=== PATIENT | female | born 1960 | race Caucasian/White ===

== ENCOUNTER 2019-10-06 11:37 | Inpatient (IN) ==
[2019-10-06] MEDS ORDERED: NS 1,000 ML IV ONE ×2 (11:43→14:49)
[2019-10-06] MEDS ORDERED: ATIVAN IM ONE (11:45)
[2019-10-06] MEDS ORDERED: BENADRYL IM ONE (11:45)
[2019-10-06] MEDS ORDERED: STERILE WATER INJ. INJ ONE (11:45)
[2019-10-06] MEDS ORDERED: GEODON IM ONE (11:45)
--- NOTE | 2019-10-06 12:33 | Diag Imaging Result Doc PS360 ---
EXAM: CT HEAD W/O CONTRAST INDICATION: AMS, history of cancer TECHNIQUE: This exam was performed using automated exposure control, adjustment of mA or kV according to patient size, and/or use of iterative reconstruction technique. COMPARISON: 05/22/2019 FINDINGS: There is no definite acute infarct given the limited sensitivity of CT versus MRI. There is no discrete intracranial mass, mass effect, or intracranial hemorrhage. There is severe right maxillary sinus mucosal disease. Surrounding soft tissues and bony structures are grossly unremarkable, otherwise. IMPRESSION: Right maxillary sinusitis. No evidence of acute intracranial pathology by CT. Electronically signed by Eliot Kimble 10/06/2019 12:31 PM
--- NOTE | 2019-10-06 12:59 | Diag Imaging Result Doc PS360 ---
EXAM: CHEST-PORTABLE HISTORY: AMS TECHNIQUE: Single view COMPARISON: 05/22/2019 FINDINGS: The lungs are well expanded. No cardiomegaly. No pulmonary edema. There are surgical clips and sutures in the left hemithorax. No change in the right jugular portacatheter. No consolidation. No pleural effusions identified. IMPRESSION: Stable chest Electronically signed by Nael Ryan 10/06/2019 12:56 PM
[2019-10-06] MEDS ORDERED: D50W SYRINGE IV ONE ×3 (13:24→23:43)
--- NOTE | 2019-10-06 13:26 | EKG Report ---
Test Performed on : 10/06/2019 1:27:17 PM Test Reason : Stroke like symptoms Blood Pressure : / mmHG Vent. Rate : 100 BPM Atrial Rate : 100 BPM P-R Int : 000 ms QRS Dur : 092 ms QT Int : 542 ms P-R-T Axes : 000 060 028 degrees QTc Int : 699 ms Accelerated Junctional rhythm. Nonspecific ST and T wave abnormality Prolonged QT Abnormal ECG When compared with ECG of 22-MAY-2019 10:21, Junctional rhythm. has replaced Sinus rhythm. Vent. rate has increased BY 33 BPM Inverted T waves have replaced nonspecific T wave abnormality in Inferior leads QT has lengthened Unconfirmed Result
[2019-10-06 14:01] LABS: BASO# 0.03 X1000 (0.0-0.2); BASO% 0.6 % (0.0-0.8); EOS# 1.22 X1000 (0.0-0.7); EOS% 23.9 % (0.0-10.0); HEMATOCRIT 33.2 % (37.0-47.0); HEMOGLOBIN 11.1 g/dL (12.0-16.0); LYMPH# 0.79 X1000 (1.2-3.4); LYMPH% 15.5 % (20.5-51.1); MCH 30.8 PG (27-31); MCHC 33.4 g/dL (33-37); MCV 92.2 FL (81-99); MONO# 0.43 X1000 (0.11-0.59); MONO% 8.4 % (1.7-9.3); MPV 9.7 FL (7.4-10.4); NEUT# 2.63 X1000 (1.4-6.5); NEUT% 51.6 % (42.2-75.2); PLT 179 X1000 (130-400); RDW 14.2 % (11.5-14.5)
[2019-10-06 14:04] LABS: ESTIMATED GFR > 60
[2019-10-06 14:08] LABS: AGAP 12; ALB/GLOB RATIO 2.4; ALBUMIN 3.1 g/dL (3.5-5.0); ALKALINE PHOSPHATASE 49 U/L (32-104); BUN 6 mg/dL (8-22); CALCIUM 8.1 mg/dL (8.8-10.2); CHLORIDE 85 mmol/L (98-107); COSMO 259; CREATININE 0.4 mg/dL (0.5-0.9); GLUCOSE 318 mg/dL (70-104); GOT 17 U/L (10-30); GPT 7 U/L (10-36); SODIUM 124 mmol/L (136-145); TCO2 27 mmol/L (25-35); TOTAL BILIRUBIN 0.58 mg/dL (0.20-1.00); TOTAL PROTEIN 4.4 g/dL (6.3-8.3)
[2019-10-06 14:15] LABS: INR 1.13; PROTIME 14.6 Seconds (11.0-16.0)
[2019-10-06 14:16] LABS: PTT 45.9 Seconds (22.3-41.8)
[2019-10-06 14:42] LABS: EOS 19 % (1-10); LYMPHS 17 % (21-51); MONO 5 % (1-9); SEGS 59 % (42-75)
[2019-10-06 14:49] LABS: URINE SOURCE CATH
[2019-10-06] MEDS ORDERED: HUMULIN R IV ONE (14:49)
[2019-10-06] MEDS ORDERED: ROCEPHIN 1 GM in NS 50 ML IV ONE (14:57)
[2019-10-06 15:03] LABS: BILIRUBIN URINE NEGATIVE (NEGATIVE); BLOOD URINE NEGATIVE (NEGATIVE); COLOR YELLOW; GLUCOSE URINE 150 mg/dL (NEGATIVE); KETONE URINE 10 mg/dL (NEGATIVE); LEUKOCYTES URINE NEGATIVE (NEGATIVE); NITRITE URINE NEGATIVE (NEGATIVE); PROTEIN URINE TRACE mg/dL (NEGATIVE); SP GRAVITY URINE 1.011; TURBIDITY URINE CLEAR (CLEAR); UROBILINOGEN URINE NORMAL (NORMAL)
[2019-10-06 15:06] LABS: UR EPITHELIAL CELLS <10 /HPF (<10); URINE BACTERIA NEGATIVE /HPF; URINE RBC <10 /HPF (<10); URINE WBC <10 /HPF (<10)
--- NOTE | 2019-10-06 15:08 | PROVIDER DOCUMENTATION ---
This chart was entered by Nicole Acuna Scribe, acting as scribe for Syed Mcdaniel MD. HPI-General Adult - General Stated Complaint: MENTAL CONFUSION "STATES SHE JSUT DONT FEEL WELL" Time Seen by Provider: 10/06/19 11:41 Source: patient, family () Unable to obtain history due to:: altered Allergies/Adverse Reactions: Patient Allergies Allergy/AdvReac Type Severity Reaction Status Date / Time Penicillins Allergy HIVES Verified 05/22/19 10:18 Home Medications: Home Medication List Medication Instructions Recorded Confirmed Last Taken Type Diphenhydramine HCl [Sleep Aid] 25 mg PO HS 10/13/17 05/22/19 11/20/17 21:00 History Triamterene/Hydrochlorothiazid 1 each PO DAILY 10/13/17 05/22/19 11/20/17 21:00 History [Dyazide 37.5-25 Capsule] Ondansetron [Zofran] 4 mg PO Q6H PRN PRN #10 tab 11/21/17 05/22/19 Unknown Rx Potassium Chloride 20 meq PO DAILY 11/21/17 05/22/19 11/21/17 08:00 History Albuterol Sulfate Inhaler 2 puff INH PRN PRN 05/22/19 05/22/19 Unknown History [Ventolin Hfa] Levothyroxine [Synthroid] 100 mg PO DAILY 05/22/19 05/22/19 Unknown History Magnesium Chloride 400 mg PO DAILY 05/22/19 05/22/19 Unknown History Methylphenidate HCl [Ritalin] 10 mg PO BID 05/22/19 05/22/19 Unknown History Aspirin 81 mg PO DAILY #30 chewtab 05/24/19 Unknown Rx Cephalexin [Keflex] 500 mg PO Q12H #10 cap 05/24/19 Unknown Rx Lactobacillus Rhamnosus GG 1 ea PO DAILY #30 cap 05/24/19 Unknown Rx [Culturelle] - History of Present Illness -Gen Adult Nature of Presenting Problems: 59 yowf presents to the ed via ems from [facility]. per pt was at baseline last night and this morning when shee woke she was confused and combative. pt sts she has recently completed her chemo for lung cancer but there is a concern of mets to the brain. so when found his altered he drove her to [facility]. pton exam is paranoid and has exaggerated movements. pt keeps yelling for dr villalta and telling her "just stop all this" pt is noted to have 2 diffrent shoes on her feet and does not comply with questions asked or exam completely. Location of Pain/Injury: reports: none Pain Radiation: reports: no radiation Quality of Pain: reports: none Severity: reports: severe (ams) Onset/Duration: reports: this morning Timing: reports: still present, constant Context/Activities at Onset: reports: light activity Modifying Factors: improves with: nothing Associated Symptoms: reports: anxiety, other (ams). denies: fever/chills, shortness of breath, weakness, trouble walking Similar Symptoms Previously?: No Recently seen or treated by another doctor?: Yes (saw oncology 2 weeks prior and this am) Review of Systems - Adult - REVIEW OF SYSTEMS - ADULT ROS:: ROS per family () Constitutional: denies: chills, fever Eyes: reports: no symptoms reported Ears, Nose, Mouth & Throat: reports: no symptoms reported Cardiovascular: denies: chest pain, syncope Respiratory: denies: cough, shortness of breath Gastrointestinal: denies: nausea, vomiting Genitourinary: reports: no symptoms reported Musculoskeletal: reports: no symptoms reported Integumentary: reports: no symptoms reported Neurological: denies: dizziness/vertigo, slurred speech Psychiatric: reports: no symptoms reported Endocrine: reports: no symptoms reported Hematologic/Lymphatic: reports: no symptoms reported Allergic/Immunologic: reports: no symptoms reported All Other Systems: Reviewed and Negative Past History - Adult - PAST MEDICAL HISTORY-ADULT Review of Records: reports: Old Records Reviewed, Nursing Assessment Review, Medications Reviewed, Social history reviewed & non-contributory. Major Childhood Illnesses: reports: denies history Cardiovascular: reports: HTN Respiratory: reports: COPD, cancer Gastrointestinal: reports: denies history Obstetrical/Gynecological: reports: denies history Genitourinary: reports: kidney disease Musculoskeletal: reports: denies history Hand Dominance: Right Handed Neurological: reports: CVA Psychiatric: reports: denies history Endocrine/Immune: reports: denies history Other Conditions: reports: denies history - PRIOR SURGERIES/PROCEDURES Surgical/Procedure History: reports: - IMMUNIZATION STATUS Childhood Immunizations: See Nurse Assessment Flu Vaccine: See Nurse Assessment - FAMILY HISTORY Family History: reviewed, not pertinent - SOCIAL HISTORY Smoking: denies Substance Use: alcohol Alcohol Use Frequency: occasionally Number of drinks per typical drinking period:: 2 drinks Living Situation: family Physical Exam-General - PHYSICAL EXAM-ADULT Exam Limited by: pt is combative and does not comply with compete exam Initial Vital Signs Reviewed: Yes - CONSTITUTIONAL General Appearance: alert, mild distress, thin, anxious - EYES Eyes: PERRL/EOMI (mid range and reactive) - HEAD, EARS, NOSE, MOUTH & THROAT HENMT: moist mucous membranes - NECK Neck: non-tender, full range of motion, normal inspection - CARDIOVASCULAR Cardiovascular: normal peripheral pulses, tachycardia - CHEST (BREASTS) Chest/Breast: deferred - GENITOURINARY Female Genitalia/Pelvic Exam: deferred Rectal Exam: deferred Hemoccult Exam: deferred - MUSCULOSKELETAL Extremity: normal range of motion, normal gait - SKIN Integumentary: normal color, normal turgor, warm/dry - PSYCHIATRIC Psych/Mental Status: disoriented x 3, anxious, paranoid Progress - PLAN OF CARE/RESULTS Progress/Plan/Lab Results: Orders Category Date Time Status Cardiac Monitoring DIRECTED Care 10/06/19 11:41 Active Finger Stick Blood Sugar (ED) DIRECTED Care 10/06/19 11:41 Active Saline Loc NOW Care 10/06/19 11:41 Active CHEST-PORTABLE [RAD] Stat Exams 10/06/19 11:[address] HEAD W/O CONTRAST [CT] Stat Exams 10/06/19 11:41 Ordered BLOOD CULTURE [BLDCUL] Stat Lab 10/06/19 11:42 Uncollected CBC WITH ELECTRONIC DIFF [HEME] Stat Lab 10/06/19 11:41 Uncollected COMPREHENSIVE METABOLIC PANEL [CHEM] Stat Lab 10/06/19 11:41 Uncollected LACTATE, PLASMA [CHEM] Stat Lab 10/06/19 11:43 Uncollected PROTIME WITH INR [COAG] Stat Lab 10/06/19 11:41 Uncollected PTT [COAG] Stat Lab 10/06/19 11:41 Uncollected TROPONIN T Stat Lab 10/06/19 11:41 Uncollected URINALYSIS W/POSS RFLX CULT [URINALYSIS] Stat Lab 10/06/19 11:41 Uncollected URINE DRUG SCREEN Stat Lab 10/06/19 11:41 Uncollected 0.9% Sodium Chloride Inj [Ns] 1,000 ml Med 10/06/19 11:43 Active IV 999 mls/hr Diphenhydramine [Benadryl] Med 10/06/19 11:45 Discontinued 50 mg IM NOW ONE Lorazepam [Ativan] Med 10/06/19 11:45 Discontinued 1 mg IM NOW ONE Water, Sterile Inj [Sterile Water Inj.] Med 10/06/19 11:45 Discontinued 1.2 ml INJ NOW ONE Ziprasidone [Geodon] Med 10/06/19 11:45 Discontinued 20 mg IM NOW ONE EKG [EKG] Stat Ther 10/06/19 11:41 Ordered Result Diagrams: 10/06/19 13:25 10/06/19 13:25 - REASSESSMENT Reassessment #1 Time Reassessed: 13:19 (pt has [facility] 41 dr mcdaniel at bedside) Reassessment #2 Time Reassessed: 14:57 (pt is resting in bed and daughter at bedside sts with BGL drops mother can act odd like she presented today) Status: improving - EKG 1 Time of EKG reading by physician:: 13:27 EKG Read and Signed by:: Syed Mcdaniel EKG Interpretation (*Must complete 3 of following elements*): Abnormal Rate: 100 Rhythm: sinus tach Assaria: normal QRS: other (bilateral enlargment/prolonged QT) AL Interval: normal Comments: nonspecific ST and T wave abnormlaity - XRAY 1 XRAY: Bilateral XRAY Study: Chest Impression: See EMR Report (EXAM: CHEST-PORTABLE HISTORY: AMS TECHNIQUE: Single view COMPARISON: 05/22/2019 FINDINGS: The lungs are well expanded. No cardiomegaly. No pulmonary edema. There are surgical clips and sutures in the left hemithorax. No change in the right jugular portacatheter. No consolidation. No pleural effusions identified. IMPRESSION: Stable chest Electronically signed by Nael Ryan 10/06/2019 12:56 PM 10/06/19 1256 Interpreting Physician: Nael Ryan MD Dictated Date/Time: 10/06/19 1255 cc: Syed Mcdaniel MD; Jose Villalta MD) - CT/MRI 1 CT Study: Head Impression: See EMR Report (EXAM: CT HEAD W/O CONTRAST INDICATION: AMS, history of cancer TECHNIQUE: This exam was performed using automated exposure control, adjustment of mA or kV according to patient size, and/or use of iterative reconstruction technique. COMPARISON: 05/22/2019 FINDINGS: There is no definite acute infarct given the limited sensitivity of CT versus MRI. There is no discrete intracranial mass, mass effect, or intracranial hemorrhage. There is severe right maxillary sinus mucosal disease. Surrounding soft tissues and bony structures are grossly unremarkable, otherwise. IMPRESSION: Right maxillary sinusitis. No evidence of acute intracranial pathology by CT. Electronically signed by Eliot Kimble 10/06/2019 12:31 PM 10/06/19 1231 Interpreting Physician: Eliot Kimble MD Dictated Date/Time: 10/06/19 1230 cc: Syed Mcdaniel MD; Jose Villalta MD) - CONSULTS/PCP/HOSPITALIST Notification #1 *Consult/PCP/Hospitalist*: dr villalta oncology Time Discussed: 14:55 (admit to hospitalist service) Reason/Comments: phone consult #2 Consult: hospitalist Time Discussed: 15:03 (spoke with nghia) Reason/Comments: admit to [facility] Consult Disposition: Will see in ED, Admit Departure - Departure Date of Disposition Decision: 10/06/19 Time of Disposition Decision: 15:05 DIAGNOSIS: Multiple episodes of hypoglycemia, Opioid dependence in controlled environment, Prolonged QT interval syndrome, Hyponatremia syndrome Altered mental status, unspecified Qualifiers: Altered mental status type: disorientation Qualified Code(s): R41.0 - Disorientation, unspecified Maxillary sinusitis, acute Qualifiers: Recurrence: non-recurrent Qualified Code(s): J01.00 - Acute maxillary sinusitis, unspecified Disposition: ADMITTED INPATIENT 09 Certified Medical Emergency: Emergent Condition: Fair Referrals and Follow-Ups: Jose Villalta MD [Primary Care Provider] - - Critical Care Note This patient required my direct & personal management of CC.: Yes Total Time (mins): 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 Attestation - Physician/ YARITZA Attestation Patient care was provided by Advanced Practice Provider:: No The physician spent face to face time with patient:: Yes Advanced Practice Provider documentation review:: Supervising physician onsite and consulted in the evaluation and care of this patient. The physician did have a face to face encounter with the patient. This chart was documented by the indicated scribe, (Nicole Acuna Scribe) and accurately reflects the services I performed and decisions made by me, Syed Mcdaniel MD, as attested by the provider's signature.
[2019-10-06 15:18] LABS: UR AMPHETAMINES QUAL NONE DETECTED (NONE DETECT); UR BARBITUATES QUAL NONE DETECTED (NONE DETECT); UR BENZODIAZEPIN QUAL NONE DETECTED (NONE DETECT); UR CANNABINOIDS QUAL NONE DETECTED (NONE DETECT); UR COCAINE QUAL NONE DETECTED (NONE DETECT); UR METHADONE QUAL NONE DETECTED (NONE DETECT); UR OPIATES QUAL PRESUMPTIVE POSITIVE (NONE DETECT); UR OXYCODONE QUAL NONE DETECTED (NONE DETECT); UR PCP QUAL NONE DETECTED (NONE DETECT)
[2019-10-06] MEDS ORDERED: MAGNESIUM SULFATE 2 GM/S.W.I. 2 GM/50 ML IVPB IV ONE (15:58)
[2019-10-06] MEDS ORDERED: POTASSIUM CHLORIDE 20 MEQ/SWI 20 MEQ/100 ML IVPB IV ONE (15:58)
[2019-10-06] MEDS ORDERED: NS + KCL 40 MEQ 1,000 ML IV ONE (16:00)
[2019-10-06] MEDS ORDERED: TYLENOL PO PRN (16:10)
--- NOTE | 2019-10-06 16:27 | HISTORY AND PHYSICAL ---
HISTORY OF PRESENT ILLNESS: This is a 59-year-old who is followed by Dr. Jose Ayoub. A 59- year-old who has a history of lung cancer that metastasized to the kidney, lymph node, left upper lobectomy 10 years ago, had a tumor removed off her kidney about 2 years ago. The patient has noted to have right lung nodules, receiving chemotherapy per Dr. Ayoub, chemotherapy with Taxol and Avastin. Treatment with Avastin, I think it is still going on. She has a history of hypertension, hyperlipidemia, hypothyroidism, chronic pain. Stated that yesterday she was in fairly good state of health. Today, she was very confused, disoriented and somewhat agitated. They state she has lost probably 50 pounds in the last 2 years. She has had poor appetite and had some nausea. She did have a low sodium. They do not report any fever chills or cough or hematochezia or gross hematuria. PAST SURGICAL HISTORY: Had a lobectomy 10 years ago and left upper lobe tumor removal from her right kidney about 2 years ago. He has had been following nodules on the right lung, followed by Dr. Ayoub. FAMILY HISTORY: Father of lung cancer. SOCIAL HISTORY: She was a former smoker. She has quit a good 13 years ago after she was diagnosed with lung cancer. Denies any illicit drug use. No alcohol. Not eating very well at all. ALLERGIES: Penicillin. HER MEDICATIONS: Reviewed. REVIEW OF SYSTEMS: She denies fever or chills. Feels like she is steadily losing more weight, increased weakness, general weakness and lethargy.HEENT: No change in visual or hearing acuity reported. Respiratory: No increased work of breathing or dyspnea. No pleuritic pain or cough. Cardiovascular: No chest pain or tachy palpitation. Gastrointestinal and Genitourinary: No gross hematuria, dysuria, poor appetite. Endocrinologic, hematologic: No significant history. Musculoskeletal/Neurologic: Just general weakness, nothing focal. PHYSICAL EXAMINATION: VITAL SIGNS: In the emergency room temp 97.5 degrees, pulse 85, respirations 12, blood pressure 129/85. HEENT: Pupils are equal and round. LUNGS: Clear in all lung rose. CARDIOVASCULAR: Regular rhythm and rate without murmur or S3. ABDOMEN: Soft. SKIN: Warm and dry. Weight was 99 pounds. NECK: Supple without adenopathy or thyromegaly. LABORATORY DATA: White count 5100, hematocrit is 33, hemoglobin 11, platelet count 179,000. Sodium 124, potassium 3.0, chloride is 85, BUN is 6, creatinine 0.4, blood sugar is 41, calcium is 8.1, AST is 17, ALT was 77. Troponin is less than 0.01. Albumin 3.1. ProTime is 14.6, PTT was 45. Note, the albumin was 3.1. Urine drug screen presumptive positive for opiates. Urinalysis unremarkable. IMAGING: Chest x-ray: Stable chest. Lungs well expanded. No cardiomegaly. No pulmonary edema. There are some surgical clips and sutures in the left hemithorax. No change in the right jugular [id number]. No consolidation or pleural effusions appreciated. CT of the head without contrast: Right maxillary sinusitis. No evidence of acute intracranial pathology per CT scan. ASSESSMENT AND PLAN: Altered mental status on the face of severe protein-calorie malnutrition with cachexia. She has a normocytic anemia which appears stable. She has significant hyponatremia sodium 124. I do not see any significant acidosis. Transaminases are unremarkable, but she has been running low glucose at home. Review of her medications: She is on magnesium supplement. She is taking Ritalin 10 mg p.o. b.i.d.. She is on a diuretic of triamterene and hydrochlorothiazide, and she is getting Synthroid. So, we will continue her Synthroid 100 mg p.o. daily, aspirin 81 mg a day. She was taking Keflex. We will hold that for now. She is on Culturelle 1 a day. We will continue that. We will check her B12 and folate T4 TSH we will check an a.m. cortisol level. I think we probably should check hemoglobin A1c and we will give her a regular diet and see how her p.o. intake is. We will give her some normal saline and will run it at 85 mL an hour. I think we will give her normal saline with some potassium so we will have 40 mEq of potassium in it per L, run it at 85 mL an hour. Ask Dr. Ayoub to help as far as making decisions on her treatment and home discharge plans. cc: Gerry [facility] MD
[2019-10-07] MEDS ORDERED: NS + KCL 40 MEQ 1,000 ML IV SCH (05:00)
[2019-10-07 06:14] LABS: BASO# 0.02 X1000 (0.0-0.2); BASO% 0.4 % (0.0-0.8); EOS# 0.83 X1000 (0.0-0.7); HEMATOCRIT 40.2 % (37.0-47.0); HEMOGLOBIN 13.8 g/dL (12.0-16.0); LYMPH# 0.81 X1000 (1.2-3.4); LYMPH% 17.6 % (20.5-51.1); MCH 31.1 PG (27-31); MCHC 34.3 g/dL (33-37); MCV 90.5 FL (81-99); MONO# 0.46 X1000 (0.11-0.59); NEUT# 2.49 X1000 (1.4-6.5); PLT 190 X1000 (130-400); RBC 4.44 XMIL (4.2-5.4); RDW 14.4 % (11.5-14.5); WBC 4.61 X1000 (4.8-10.8)
[2019-10-07 06:22] LABS: HEMOGLOBIN A1C 4.5 % (4.8-6.0)
[2019-10-07 06:28] LABS: AGAP 14; ALB/GLOB RATIO 1.9; ALBUMIN 3.4 g/dL (3.5-5.0); ALKALINE PHOSPHATASE 64 U/L (32-104); BUN 4 mg/dL (8-22); CALCIUM 8.3 mg/dL (8.8-10.2); CHLORIDE 87 mmol/L (98-107); COSMO 250; CREATININE 0.4 mg/dL (0.5-0.9); ESTIMATED GFR > 60; GLUCOSE 69 mg/dL (70-104); GOT 25 U/L (10-30); GPT 9 U/L (10-36); MAGNESIUM 1.7 mg/dL (1.5-2.7); POTASSIUM 3.3 mmol/L (3.5-5.1); SODIUM 127 mmol/L (136-145); TCO2 26 mmol/L (25-35); TOTAL BILIRUBIN 0.42 mg/dL (0.20-1.00); TOTAL PROTEIN 5.2 g/dL (6.3-8.3)
[2019-10-07 06:43] LABS: PREALBUMIN 6.4 mg/dL (20-40)
[2019-10-07] MEDS: D50W SYRINGE IV ONE ×4 (06:45→07:12)
[2019-10-07 07:07] LABS: FREE T4 1.15 ng/dL (0.93-1.70); TSH 5.92 uIUmL (0.27-4.20)
--- NOTE | 2019-10-07 07:45 | EKG Report ---
Test Performed on : 10/07/2019 07:13:51 AM Test Reason : evaluate qtc Blood Pressure : / mmHG Vent. Rate : 115 BPM Atrial Rate : 059 BPM P-R Int : 000 ms QRS Dur : 084 ms QT Int : 460 ms P-R-T Axes : 000 084 113 degrees QTc Int : 636 ms Critical Test Result: Long QTc Accelerated Junctional rhythm. Septal infarct , age undetermined Possible Inferior infarct , age undetermined T wave abnormality, consider anterior ischemia Prolonged QT Abnormal ECG When compared with ECG of 06-OCT-2019 13:27, (Unconfirmed) Borderline criteria for Inferior infarct are now present Confirmed by Reny OSCAR, Liban ([id number]) on 10/07/2019 8:39:53 AM
[2019-10-07] MEDS: ZOFRAN IV PRN (09:51)
[2019-10-07] MEDS: MS CONTIN PO SCH ×2 (09:51→21:23)
[2019-10-07] MEDS: D5 NS 1,000 ML IV SCH ×2 (09:52→21:29)
[2019-10-07] MEDS ORDERED: VANCOMYCIN IV PER PHARMACY MISC SCH (10:45)
[2019-10-07] MEDS ORDERED: SYNTHROID PO SCH (11:45)
[2019-10-07] MEDS ORDERED: VANCOMYCIN 1,500 MG in NS 250 ML IV ONE (12:00)
[2019-10-07] MEDS: MAG-OX PO SCH (12:51)
[2019-10-07] MEDS: CULTURELLE PO SCH (12:51)
[2019-10-07] MEDS: KLOR-CON PO SCH (12:51)
[2019-10-07] MEDS: NORCO-10 PO PRN (12:51)
[2019-10-07] MEDS: ASPIRIN PO SCH (12:51)
[2019-10-07] MEDS: DYAZIDE PO SCH (12:51)
--- NOTE | 2019-10-07 12:52 | Diag Imaging Result Doc PS360 ---
MRI BRAIN W/WO CONTRAST - 10/07/2019 INDICATION: New onset AMS in pt with NSCLC COMPARISON: 05/24/2019, 10/06/2019 FINDINGS: The ventricles and sulci are normal in size and contour. No intracranial mass or hemorrhage. No abnormal contrast enhancement. There are a couple of tiny stable nonspecific white matter hyperintensities. There are some stable mucosal retention cysts of the right maxillary sinus. IMPRESSION: No acute disease or change from prior. Electronically signed by Nolan Vasquez 10/07/2019 12:50 PM
--- NOTE | 2019-10-07 13:15 | PROGRESS NOTE ---
DATE: 10/07/2019 SUBJECTIVE: Ms. Hernandez does feel much better. No confusion this morning. Blood sugar has come up above 100. OBJECTIVE: Temperature is 97.6 degrees, pulse 110, respirations 17, blood pressure 148/92. Lungs: Clear in all lung rose. Cardiovascular: Regular rhythm and rate without murmur or S3. Abdomen: Soft. Skin: Warm and dry. Urine output is 3200 mL. ASSESSMENT AND PLAN: Altered mental status in the face hypoglycemia and hyponatremia. Poor food and liquid intake, so encourage her. She does not have much appetite. Encouraged her to eat. Her sodium came up from 124 to 127. Blood sugars have come up above 100 and so we will see how she does with eating and see what Dr. Ayoub is planning. I know they had talked about pursuing an EGD and maybe that will be something we will pursue as an outpatient. Plan to keep her today and possibly go home tomorrow. We will get some physical therapy and see if we can get her up and walk around some. cc: Gerry [facility] MD
[2019-10-07] MEDS: ROCEPHIN 1 GM in NS 50 ML IV SCH (17:23)
[2019-10-07] MEDS ORDERED: RITALIN PO SCH (21:00)
[2019-10-07] MEDS: BENADRYL PO SCH (21:23)
[2019-10-08] MEDS: VANCOMYCIN 1,300 MG in NS 250 ML IV SCH (05:28)
[2019-10-08 06:35] LABS: AGAP 10; ALB/GLOB RATIO 1.6; ALBUMIN 2.9 g/dL (3.5-5.0); ALKALINE PHOSPHATASE 53 U/L (32-104); BUN 6 mg/dL (8-22); CALCIUM 7.9 mg/dL (8.8-10.2); CHLORIDE 94 mmol/L (98-107); COSMO 257; CREATININE 0.6 mg/dL (0.5-0.9); ESTIMATED GFR > 60; GLUCOSE 101 mg/dL (70-104); GOT 20 U/L (10-30); GPT 8 U/L (10-36); POTASSIUM 3.7 mmol/L (3.5-5.1); SODIUM 129 mmol/L (136-145); TCO2 25 mmol/L (25-35); TOTAL BILIRUBIN 0.38 mg/dL (0.20-1.00); TOTAL PROTEIN 4.7 g/dL (6.3-8.3)
[2019-10-08 06:46] LABS: BASO# 0.03 X1000 (0.0-0.2); BASO% 0.6 % (0.0-0.8); EOS# 1.19 X1000 (0.0-0.7); EOS% 22.5 % (0.0-10.0); HEMATOCRIT 38.1 % (37.0-47.0); HEMOGLOBIN 12.6 g/dL (12.0-16.0); LYMPH# 0.87 X1000 (1.2-3.4); LYMPH% 16.4 % (20.5-51.1); MCH 30.7 PG (27-31); MCHC 33.1 g/dL (33-37); MCV 92.9 FL (81-99); MONO# 0.65 X1000 (0.11-0.59); MONO% 12.3 % (1.7-9.3); MPV 10.3 FL (7.4-10.4); NEUT# 2.56 X1000 (1.4-6.5); NEUT% 48.2 % (42.2-75.2); PLT 208 X1000 (130-400); RDW 14.9 % (11.5-14.5)
[2019-10-08 07:27] LABS: EOS 18 % (1-10); LYMPHS 20 % (21-51); MONO 2 % (1-9); SEGS 60 % (42-75)
[2019-10-08] MEDS: MS CONTIN PO SCH ×2 (09:35→21:45)
[2019-10-08] MEDS: KLOR-CON PO SCH (09:35)
[2019-10-08] MEDS: RITALIN PO SCH ×2 (09:36→12:47)
[2019-10-08] MEDS: MAG-OX PO SCH (09:36)
[2019-10-08] MEDS: SYNTHROID PO SCH (09:36)
[2019-10-08] MEDS: ASPIRIN PO SCH (09:36)
[2019-10-08] MEDS: DYAZIDE PO SCH (09:36)
[2019-10-08] MEDS: CULTURELLE PO SCH (09:36)
[2019-10-08] MEDS: D5 NS 1,000 ML IV SCH ×3 (10:57→21:45)
[2019-10-08] MEDS: NORCO-10 PO PRN ×2 (12:46→19:19)
[2019-10-08] MEDS: ZOFRAN IV PRN ×2 (13:41→18:06)
--- NOTE | 2019-10-08 15:33 | PROGRESS NOTE ---
DATE: 10/08/2019 She is sitting up in chair feeling much better. Plan is to try and get a PEG tube and EGD done on Friday. She remains afebrile, temperature 97.7 degrees, pulse 89, respirations 18, blood pressure 143/70. Pupils are equal and round. Lungs: Clear in all lung rose. Cardiovascular: Regular rhythm, rate without murmur or S3. Abdomen: Soft. Skin: Warm and dry. Urine output 1600 mL. ASSESSMENT AND PLAN: Presented with hypoglycemia, hyponatremia, poor p.o. intake, protein calorie malnutrition. Plan is to try and place PEG tube and do an EGD on Friday per Dr. Gongora. She had a brain MRI done and no acute disease. She has normocytic anemia. Hyponatremia is improved. She is followed by Dr. Jose Ayoub, history of lung cancer metastatic to the kidney, lymph nodes, left upper lobectomy was done 10 years ago tumor removed from the kidney about 2 years ago. Review of orders, I do not see any change. cc: Gerry [facility] MD
[2019-10-08] MEDS: ROCEPHIN 1 GM in NS 50 ML IV SCH (17:51)
[2019-10-08] MEDS: PROTONIX IV SCH (17:51)
[2019-10-08] MEDS: D50W SYRINGE IV PRN (20:18)
[2019-10-08] MEDS: COMPAZINE IV PRN (20:18)
[2019-10-08] MEDS: BENADRYL PO SCH (21:45)
[2019-10-09] MEDS: VANCOMYCIN 1,300 MG in NS 250 ML IV SCH ×2 (00:46→17:43)
[2019-10-09] MEDS: ZOFRAN IV PRN ×3 (01:20→20:19)
[2019-10-09] MEDS: D50W SYRINGE IV PRN ×4 (02:14→21:12)
[2019-10-09 06:38] LABS: BASO# 0.01 X1000 (0.0-0.2); BASO% 0.2 % (0.0-0.8); EOS# 1.37 X1000 (0.0-0.7); EOS% 26.5 % (0.0-10.0); HEMATOCRIT 38.2 % (37.0-47.0); HEMOGLOBIN 12.3 g/dL (12.0-16.0); LYMPH# 0.76 X1000 (1.2-3.4); LYMPH% 14.7 % (20.5-51.1); MCH 30.7 PG (27-31); MCHC 32.2 g/dL (33-37); MCV 95.3 FL (81-99); MONO# 0.39 X1000 (0.11-0.59); MONO% 7.5 % (1.7-9.3); MPV 9.5 FL (7.4-10.4); NEUT# 2.64 X1000 (1.4-6.5); NEUT% 51.1 % (42.2-75.2); PLT 210 X1000 (130-400); RBC 4.01 XMIL (4.2-5.4); RDW 14.9 % (11.5-14.5); WBC 5.17 X1000 (4.8-10.8)
[2019-10-09 06:58] LABS: AGAP 10; ALB/GLOB RATIO 1.4; ALBUMIN 2.7 g/dL (3.5-5.0); ALKALINE PHOSPHATASE 47 U/L (32-104); BUN 5 mg/dL (8-22); CHLORIDE 97 mmol/L (98-107); COSMO 265; CREATININE 0.7 mg/dL (0.5-0.9); ESTIMATED GFR > 60; GLUCOSE 98 mg/dL (70-104); GOT 17 U/L (10-30); GPT 6 U/L (10-36); MAGNESIUM 1.8 mg/dL (1.5-2.7); POTASSIUM 4.1 mmol/L (3.5-5.1); SODIUM 134 mmol/L (136-145); TCO2 27 mmol/L (25-35); TOTAL BILIRUBIN 0.29 mg/dL (0.20-1.00); TOTAL PROTEIN 4.6 g/dL (6.3-8.3)
[2019-10-09 07:54] LABS: ANISOCYTOSIS 1+; BANDS 1 % (0-1); EOS 11 % (1-10); LYMPHS 20 % (21-51); MONO 3 % (1-9); SEGS 65 % (42-75)
[2019-10-09] MEDS: RITALIN PO SCH ×2 (08:22→12:42)
[2019-10-09] MEDS: KLOR-CON PO SCH (08:22)
[2019-10-09] MEDS: MS CONTIN PO SCH ×2 (08:22→21:11)
[2019-10-09] MEDS: MAG-OX PO SCH (08:22)
[2019-10-09] MEDS: CULTURELLE PO SCH (08:23)
[2019-10-09] MEDS: ASPIRIN PO SCH (08:23)
[2019-10-09] MEDS: SYNTHROID PO SCH (08:23)
[2019-10-09] MEDS ORDERED: CEPACOL SORE THROAT LOZENGE MT PRN (09:52)
--- NOTE | 2019-10-09 10:36 | PROGRESS NOTE ---
DATE: 10/09/2019 SUBJECTIVE: She has been able to get down 1 biscuit. She was proud of that. Plan is to place a PEG tube on Friday. She is having some indigestion. She is already on Protonix 40 mg IV q.12. Let her have some Maalox if she wants to try that. OBJECTIVE: Vital signs: Remains afebrile. Pulse 96, respirations 17, blood pressure 151/74. HEENT: Pupils are equal and round. Lungs: Clear in all lung rose. Cardiovascular: Regular rate without murmur or S3. Abdomen: Soft. Skin: Warm and dry. Urine output is 3700 mL. ASSESSMENT AND PLAN: Presented with hypoglycemia, hyponatremia, severe protein calorie malnutrition. She has lung cancer metastatic to the kidney and lymph nodes. Left upper lobectomy was done 10 years ago and tumor removed from a kidney about 2 years ago. Main problem is poor nutrition and electrolytes, so plan is to try and get a PEG tube placed and an EGD done on Friday. LABORATORY DATA: Reviewed from this morning, white count is 5170, hematocrit is 38, platelet count is 210,000. Sodium 134, potassium 4.1, chloride 97, BUN is 5, creatinine 0.7. Blood sugars 62, 55, 79 and 57. REVIEW OF HER ORDERS: She is on aspirin 81 mg a day. Getting D5 normal saline at 85 mL an hour. Getting morphine ER 200 mg p.o. b.i.d. She gets Ritalin 10 mg twice a day, magnesium oxide 400 mg p.o. daily, Synthroid 100 mcg daily, lactobacillus rhamnosus 1 daily, ceftriaxone 1 g IV q.24 hours and vancomycin 1300 mg IV q.18 hours. MICROBIOLOGY: She has 1 out of 2 positive coagulase-negative Staphylococcus which is probably contaminant. cc: Gerry [facility] MD
[2019-10-09] MEDS: DYAZIDE PO SCH (11:29)
[2019-10-09] MEDS: CHLORASEPTIC SPRAY MT PRN (11:29)
[2019-10-09] MEDS: D5 NS 1,000 ML IV SCH ×2 (12:42→20:21)
[2019-10-09] MEDS: PROTONIX IV SCH (17:04)
[2019-10-09] MEDS: ROCEPHIN 1 GM in NS 50 ML IV SCH (17:05)
[2019-10-09] MEDS: COMPAZINE IV PRN (17:57)
[2019-10-09] MEDS: NORCO-10 PO PRN (20:19)
[2019-10-09] MEDS: BENADRYL PO SCH (21:11)
[2019-10-10] MEDS: COMPAZINE IV PRN ×2 (01:11→12:29)
[2019-10-10] MEDS: D5 NS 1,000 ML IV SCH ×2 (03:16→13:36)
[2019-10-10 06:11] LABS: BASO# 0.01 X1000 (0.0-0.2); BASO% 0.2 % (0.0-0.8); EOS# 1.84 X1000 (0.0-0.7); EOS% 33.2 % (0.0-10.0); HEMATOCRIT 35.3 % (37.0-47.0); HEMOGLOBIN 11.7 g/dL (12.0-16.0); LYMPH# 0.97 X1000 (1.2-3.4); LYMPH% 17.5 % (20.5-51.1); MCH 30.7 PG (27-31); MCHC 33.1 g/dL (33-37); MCV 92.7 FL (81-99); MONO# 0.43 X1000 (0.11-0.59); MONO% 7.8 % (1.7-9.3); MPV 9.7 FL (7.4-10.4); NEUT# 2.29 X1000 (1.4-6.5); NEUT% 41.3 % (42.2-75.2); PLT 213 X1000 (130-400); RBC 3.81 XMIL (4.2-5.4); RDW 14.2 % (11.5-14.5); WBC 5.54 X1000 (4.8-10.8)
[2019-10-10 06:31] LABS: AGAP 11; ALB/GLOB RATIO 1.3; ALBUMIN 2.5 g/dL (3.5-5.0); ALKALINE PHOSPHATASE 55 U/L (32-104); BUN 4 mg/dL (8-22); CALCIUM 8.2 mg/dL (8.8-10.2); CHLORIDE 95 mmol/L (98-107); COSMO 260; CREATININE 0.6 mg/dL (0.5-0.9); ESTIMATED GFR > 60; GLUCOSE 108 mg/dL (70-104); GOT 16 U/L (10-30); GPT 6 U/L (10-36); MAGNESIUM 1.5 mg/dL (1.5-2.7); POTASSIUM 3.4 mmol/L (3.5-5.1); SODIUM 131 mmol/L (136-145); TCO2 25 mmol/L (25-35); TOTAL BILIRUBIN 0.24 mg/dL (0.20-1.00); TOTAL PROTEIN 4.4 g/dL (6.3-8.3)
[2019-10-10] MEDS: ZOFRAN IV PRN (08:29)
[2019-10-10] MEDS: MS CONTIN PO SCH ×2 (08:31→19:59)
[2019-10-10] MEDS: MAG-OX PO SCH (08:32)
[2019-10-10] MEDS: SYNTHROID PO SCH (08:32)
[2019-10-10] MEDS: RITALIN PO SCH ×2 (08:32→12:23)
[2019-10-10] MEDS: ASPIRIN PO SCH (08:32)
[2019-10-10] MEDS: DYAZIDE PO SCH (08:32)
[2019-10-10] MEDS: KLOR-CON PO SCH (08:32)
[2019-10-10] MEDS: CULTURELLE PO SCH (08:33)
[2019-10-10 08:39] LABS: BANDS 2 % (0-1); LYMPHS 18 % (21-51); MONO 16 % (1-9); SEGS 44 % (42-75)
[2019-10-10 08:40] LABS: EOS 18 % (1-10)
[2019-10-10] MEDS: MAALOX PLUS LIQUID PO PRN (10:19)
[2019-10-10] MEDS: VANCOMYCIN 1,300 MG in NS 250 ML IV SCH (13:30)
--- NOTE | 2019-10-10 15:55 | PROGRESS NOTE ---
DATE: 10/10/2019 Mrs. Hernandez did eat a little more today. Feels much better today, much less nausea. She has some questions about whether she can go back on steroids and milrinone. Apparently this has caused her appetite to improve in the past. The plan is tomorrow with Dr. Gongora, I think to do an EGD and consider placement of a PEG tube. OBJECTIVE: Vitals: Temperature 97.7 degrees, pulse 87, respirations 16, blood pressure 158/80. Eyes: Pupils are equal and round. Lungs: Clear in all lung rose. Cardiovascular: Regular rhythm and rate without murmur or S3. Abdomen: Soft, nondistended. Skin: Warm and dry. ASSESSMENT AND PLAN: The patient presented with hypoglycemia, hyponatremia, severe protein calorie malnutrition. I suspect she has gastritis. She has lung cancer metastatic to kidney and lymph nodes, left upper lobectomy done 10 years ago, tumor removed from the kidney about 2 years ago, and main problem is with nutritional electrolytes. I think the plan is for an EGD tomorrow and possibly PEG tube. Looking at her current medications, she is on aspirin 81 mg a day. She is on Synthroid 100 mcg daily. Ritalin 10 mg, I think she takes that twice a day. Morphine extended release 200 mg b.i.d., Protonix 40 mg IV q.24 hours, ceftriaxone 1 g q.24 hours. Triamterene hydrochlorothiazide 1 a day and vancomycin 1300 mg daily. Blood cultures showed coagulase- negative Staphylococcus which I suspect is contaminant. She has remained afebrile. Chest x-ray from 10/06 was stable, no sign of infiltrate. I believe we can probably stop her antibiotics. cc: Gerry [facility] MD
[2019-10-10] MEDS: D50W SYRINGE IV PRN (15:59)
[2019-10-10] MEDS: PROTONIX IV SCH (16:05)
[2019-10-10] MEDS: NORCO-10 PO PRN (17:52)
[2019-10-10] MEDS: BENADRYL PO SCH (20:00)
[2019-10-11] MEDS: D5 NS 1,000 ML IV SCH ×2 (02:07→12:47)
[2019-10-11] MEDS: D50W SYRINGE IV PRN ×4 (05:40→21:52)
[2019-10-11 06:41] LABS: AGAP 7; ALB/GLOB RATIO 1.5; ALBUMIN 2.7 g/dL (3.5-5.0); ALKALINE PHOSPHATASE 61 U/L (32-104); BUN 3 mg/dL (8-22); CALCIUM 8.3 mg/dL (8.8-10.2); CHLORIDE 94 mmol/L (98-107); COSMO 255; CREATININE 0.5 mg/dL (0.5-0.9); ESTIMATED GFR > 60; GLUCOSE 92 mg/dL (70-104); GOT 19 U/L (10-30); GPT 7 U/L (10-36); MAGNESIUM 1.3 mg/dL (1.5-2.7); POTASSIUM 3.5 mmol/L (3.5-5.1); SODIUM 129 mmol/L (136-145); TCO2 28 mmol/L (25-35); TOTAL BILIRUBIN 0.36 mg/dL (0.20-1.00); TOTAL PROTEIN 4.5 g/dL (6.3-8.3)
[2019-10-11 06:46] LABS: BASO# 0.03 X1000 (0.0-0.2); BASO% 0.4 % (0.0-0.8); EOS# 1.62 X1000 (0.0-0.7); EOS% 23.5 % (0.0-10.0); HEMATOCRIT 36.7 % (37.0-47.0); HEMOGLOBIN 12.2 g/dL (12.0-16.0); LYMPH# 0.95 X1000 (1.2-3.4); LYMPH% 13.8 % (20.5-51.1); MCH 30.4 PG (27-31); MCHC 33.2 g/dL (33-37); MCV 91.5 FL (81-99); MONO# 0.49 X1000 (0.11-0.59); MONO% 7.1 % (1.7-9.3); MPV 9.7 FL (7.4-10.4); NEUT# 3.81 X1000 (1.4-6.5); NEUT% 55.2 % (42.2-75.2); PLT 193 X1000 (130-400); RBC 4.01 XMIL (4.2-5.4)
[2019-10-11 07:41] LABS: BANDS 4 % (0-1); EOS 16 % (1-10); LYMPHS 12 % (21-51); MONO 4 % (1-9); SEGS 64 % (42-75)
--- NOTE | 2019-10-11 08:33 | HEMO/ONC CONSULTATION ---
DATE: 10/07/2019 ADMITTING PHYSICIAN: Dr. Gerry Lopez. REQUESTING PHYSICIAN: Dr. Gerry Lopez. We appreciate this consult. CHIEF COMPLAINT: Stage IV non-small cell lung cancer. HISTORY OF PRESENT ILLNESS: Ms. Nafisa Hernandez is a very pleasant, 59-year-old, female, well known to Dr. Ayoub with a history of stage IV non-small cell lung cancer, currently on Avastin maintenance, with cycle 8 being due 10/14/2019. The patient presented to clinic the day of admission, and was accompanied by her , who reported that she has had worsening altered mental status with nausea, vomiting, and an inability to keep anything down by mouth. The patient was hypotensive on presentation and quite confused. The patient was transferred to [facility] Emergency Department via EMS for evaluation and admission. After the patient had been transferred to [facility], complete metabolic panel returned with a nonfasting blood glucose of 41. In the emergency department, the patient was found to be confused, disoriented, and somewhat agitated. Sodium was low, as well as blood glucose. The patient was admitted for evaluation. PAST MEDICAL HISTORY: 1. Stage IV non-small cell lung cancer. 2. B12 deficiency. 3. Osteoporosis. 4. COPD. 5. Anxiety and depression. 6. Hypothyroidism. PAST SURGICAL HISTORY: Lung resection. FAMILY HISTORY: Negative for any hematologic or oncologic disease. SOCIAL HISTORY: The patient has a history of smoking, but has been quit for 12 years. She is not currently drinking alcohol, and uses no illicit drugs. MEDICATIONS ON ADMISSION: 1. EMLA cream. 2. Magnesium oxide. 3. Marinol. 4. MS Contin. 5. [place]. 6. Onco Wash. 7. Zofran. 8. Potassium chloride ER. 9. ProAir HFA. 10. Trelegy ellipse. 11. Triamterene/hydrochlorothiazide. ALLERGIES: Penicillins. REVIEW OF SYSTEMS: A 14-point review of systems was obtained and is negative, except for mentioned in the HPI. PHYSICAL EXAMINATION: General: Ms. Hernandez is a pleasant, 59-year-old female, lying supine in bed, in no immediate distress. Vital Signs: Temperature is 98 degrees, blood pressure 118/63, heart rate 86, respirations 16, O2 saturation is 98% on room air. HEENT: Normocephalic, atraumatic. Mucous membranes are pink and dry. Sclerae anicteric. Extraocular movements intact. Neck: Supple. Lungs: Clear to auscultation bilaterally with decreased breath sounds in the bases. CV: S1, S2 heard without murmur, rub, or gallop. Abdomen: Nondistended. Extremities: No clubbing, cyanosis, or edema. Dermatologic: No rashes, bruises, or lesions. Neurologic: The patient is mildly confused. She is oriented x2. She has no focal motor deficit. LABORATORY DATA: Hemoglobin 13.8, hematocrit 40.2, white blood cell count is 4.61, platelets 190,000. Sodium is 127, potassium 3.3, chloride 87, CO2 is 26, BUN 4, creatinine 0.4, glucose is 69, calcium 8.3. Magnesium 1.7. Bilirubin 0.42, AST 25, ALT 9, alkaline phosphatase is 64. Vitamin B12 greater than 2000, folate 10.3, TSH 5.92. ASSESSMENT AND PLAN: 1. Stage IV non-small cell lung cancer. The patient has progressed through multiple lines of treatment. She is currently on Avastin maintenance therapy. Her next cycle is due 10/14/2019. 2. Hypoglycemia, which has been treated. We would recommend monitoring glucose, and medicating as necessary. 3. Altered mental status, much improved at this time. CT of the head was negative. We will order an MRI of the brain. 4. Cachexia. Currently on Marinol and nutritional supplements. Would continue to monitor weight. 5. History of transient ischemic attack. Currently on aspirin 81 mg daily. 6. We will follow along with you and make further recommendations pending outcomes. The above reflects the history, exam, assessment, and plan of Dr. Ayoub. Dictated by ZULEMA Cedeno for Jose Ayoub MD cc: ZULEMA Cedeno MD
[2019-10-11] MEDS: TORADOL IV PRN (10:07)
[2019-10-11] MEDS: RITALIN PO SCH ×3 (11:18→16:31)
[2019-10-11] MEDS: ASPIRIN PO SCH ×2 (11:18→16:32)
[2019-10-11] MEDS: KLOR-CON PO SCH ×2 (11:18→16:30)
[2019-10-11] MEDS: SYNTHROID PO SCH (11:19)
[2019-10-11] MEDS: MS CONTIN PO SCH ×2 (11:20→20:56)
[2019-10-11] MEDS: DYAZIDE PO SCH ×2 (11:20→16:36)
[2019-10-11] MEDS: CULTURELLE PO SCH ×2 (11:20→16:31)
[2019-10-11] MEDS: MAG-OX PO SCH ×2 (11:21→16:32)
[2019-10-11] MEDS ORDERED: DIPRIVAN 1% ONE (13:42)
[2019-10-11] MEDS ORDERED: VANCOMYCIN ONE (13:56)
[2019-10-11] MEDS ORDERED: VANCOMYCIN 1 GM/NS 1 GM/250 ML IVPB ONE (13:57)
--- NOTE | 2019-10-11 14:05 | ENDOSCOPY OPERATIVE NOTE ---
[facility] ENDOSCOPY OPERATIVE NOTE , EGD WITH PEG PROCEDURE REPORT EXAM DATE: 10/11/2019 PATIENT NAME: Nafisa Hernandez MR #: [id number] BIRTHDATE: 1960 ATTENDING: Bob Gongora MD STATUS: inpatient REGISTER OF WILLS: Evelyne Charles, Albina Rasmussen, and Meghana Shirley INDICATIONS: The patient is a 59 yr old female here for an EGD with PEG due to dysphagia, pharyngeal -esophageal and Protien calorie malnutrition.. PROCEDURE PERFORMED: EGD w/ percutaneous gastrostomy tube placement MEDICATIONS: Per Anesthesia TOPICAL ANESTHETIC: none CONSENT: The patient understands the risks and benefits of the procedure and understands that these r isks include, but are not limited to: sedation, allergic reaction, infection, perforation and/or bleeding. Alternative means of evaluation and treatment include, among others: physical exam, x-rays, and/or surgical intervention. The patient elects to proceed with this endoscopic procedure. HISTORY AND PHYSICAL: 10/11/2019 DESCRIPTION OF PROCEDURE: During pre-op preparation period all mechanical and medical equipment was c hecked for proper function. Hand hygiene and appropriate measures for infection prevention was taken. After the risks, benefits and alternatives of the procedure were thoroughly explained, Informed consent was verified, confirmed and timeout was successfully executed by the treatment team. The patient was anesthetized with topical anesthesia and the [id number] ([id number]) endoscope was introduced through the mouth and advanced to the second portion of the duoden um. The instrument was slowly withdrawn as the mucosa was fully examined. ESOPHAGUS: The mucosa of the esophagus appeared normal. STOMACH: The mucosa of the stomach appeared normal. DUODENUM: The duodenal mucosa showed no abnormalities. The stomach was then inflated with air, and by a combination of transillumination and manual palpatio n, the site for the gastrostomy tube placement was selected and marked on the anterior abdominal wall. The skin of the a nterior abdomen was surgically prepped and draped with sterile towels. Utilizing strict sterile technique, the selected site was then anesthetized with 1% xylocaine by inje ction into the skin and subcutaneous tissue. A 1 cm incision was made through the skin and subcutaneous tissue, and the needle/cannula assembly was then passed through the abdominal wall and through the anterior wall of the stomach, re ntaining visualization with the endoscope. A snare device previously placed through the instrument channel wa s then opened and placed around the cannula, the needle was removed, and the insertion wire was passed through the migel ramirez and into the stomach lumen. The snare was then loosened from the cannula, and repositioned to snare the insertion wire. The snare was then pulled up to the endoscope distal tip, and the scope was then withdrawn bringing with it the snare and insertion wire. The insertion wire was then released from the snare, and then loop-attached to the Ethan Cook 24 Fr gastrostomy tube. Using the "pull technique", the G-tube was then pulled into place by traction on the insertion wire a t the abdominal wall end. The G-tube insertion site was then cleansed once again, and the external bolster was placed over the tube to secure it to the abdominal wall. A sterile dressing was then applied, and the procedure term inated. Retroflexion was performed in the stomach and revealed no abnormalities. The gastroscope was then sl owly withdrawn and removed. ADVERSE EVENT: There were no complications. IMPRESSIONS: 1. The mucosa of the esophagus appeared normal 2. The mucosa of the stomach appeared normal 3. The duodenal mucosa showed no abnormalities RECOMMENDATIONS: 1. Resume pre-procedure medications 2. Transfer to floor REPEAT EXAM: Bob Gongora MD eSigned: Bob Gongora MD 10/11/2019 2:04 PM cc: Jose Ayoub MD CPT CODES: 72002 Upper gastrointestinal endoscopy including esophagus, stomach, and either the du odenum and/or jejunum as appropriate; with directed placement of percutaneous gastrostomy tube ICD CODES: 787.20 Dysphagia,unspecified The ICD and CPT codes recommended by this software are interpretations from the data that the [facility] staff has captured with the software. The verification of the translation of this report to the ICD and CPT co chel and modifiers is the sole responsibility of the health care institution and practicing physician where this report was generated. [employer] will not be held responsible for the validity of the ICD and CPT codes i ncluded on this report. A assumes no liability for data contained or not contained herein. CPT is a registered tra demark of the [employer]. PATIENT NAME: Nafisa Hernandez MR#: [id number]
--- NOTE | 2019-10-11 14:56 | GASTROENTEROLOGY CONSULTATION ---
DATE: 10/11/2019 REASON FOR CONSULTATION: Anorexia, protein calorie malnutrition, history of stage IV non small cell lung cancer. HISTORY OF PRESENT ILLNESS: This is a 59-year-old female who has followed with Dr. Ayoub for history of stage IV non-small cell lung cancer currently on Avastin maintenance. She is due for her cycle 8 on 10/14/2019. She was admitted on 10/06/2019 with altered mental status, nausea, vomiting and anorexia. She has had problems with hypotension and hypoglycemia. She was admitted to [facility] from Dr. Ayoub's office for further evaluation. Patient states over the weekend she had been able to eat a little more but has still had some episodes of vomiting. She denies a sore throat or trouble swallowing her food. She states it just does not always stay down. She denies abdominal pain. No blood in the stool or black stools. No hematemesis. PAST MEDICAL HISTORY: Stage IV non-small cell lung cancer, B12 deficiency, osteoporosis, COPD, anxiety and depression, hypothyroidism. PAST SURGICAL HISTORY: History of lung resection. ALLERGIES: Penicillin causing hives. HOME MEDICATIONS: Albuterol 2 puffs inhaler as needed, aspirin 81 mg daily, Benadryl 25 mg every night, hydrocodone/acetaminophen 10/325 every 6 hours as needed, Culturelle 1 daily, Synthroid 100 mg daily, magnesium 400 mg daily, Ritalin 10 mg twice a day, morphine 200 mg twice a day, Zofran 4 mg every 6 hours as needed potassium 20 mEq daily, Dyazide 37.5/25 daily. SOCIAL HISTORY: Former smoker denies alcohol use. She is . FAMILY HISTORY: Father of lung cancer. REVIEW OF SYSTEMS: Per history of present illness. PHYSICAL EXAMINATION: Vital Signs: Temperature 98 degrees, pulse 101, respirations 12, blood pressure 166/79. General: Patient is awake and alert in no acute distress. HEENT: Normocephalic, atraumatic. Pupils equal, round, reactive to light. Sclerae nonicteric. There is no visible signs of oral thrush or chyna. Respiratory: Lung sounds essentially clear. She has a port to the right chest. Cardiovascular: Regular rate and rhythm. Abdomen: Thin, soft, nontender, nondistended. Neurological: Cranial nerves 2-12. Patient is currently awake and alert, oriented to person, place and time. DIAGNOSTIC RESULTS: Laboratory. Hematology. WBC 6.90, hemoglobin 12.2, hematocrit 36.7, MCV 91.5, platelet 193,000. Chemistry. Sodium 129, potassium 3.5, chloride 94, CO2 28, BUN 3, creatinine 0.5, glucose 92, calcium 8.3, magnesium 1.3, total bilirubin 0.36, AST 19, ALT 7, alkaline phosphatase 61, total protein 4.5, albumin 2.7. Imaging studies. MRI of the brain showed no acute disease or change from prior. There were a couple of tiny stable nonspecific white matter hyperintensities. Head CT showed right maxillary sinusitis but no evidence of acute intracranial pathology by CT scan. ASSESSMENT AND PLAN: 1. Stage IV [id number] lung cancer. The patient is due for her next cycle of Avastin on 10/14/2019. Continue to follow with Dr. Ayoub. 2. Hypoglycemia. Continue to monitor her glucose. 3. Altered mental status with recent CT scan and MRI showing no acute pathology. 4. Protein-calorie malnutrition. The patient has been drinking nutritional supplements and states over the weekend she has actually been eating better but she still had some episodes of nausea and vomiting. Continue PPI, continue Maalox as ordered. Continue p.r.n. medications for nausea and vomiting. We will tentatively plan for an EGD with the possibility of PEG tube placement either today or Friday. Further plans will be made as needed. Patient was also seen by Dr. Gongora. We have discussed the EGD and PEG tube placement procedures. Further plans will be made according to endoscopy findings. Thank you for this consultation. Dictated by ZULEMA Rivera for Bob Gongora MD cc: ZULEMA Gill MD [facility]
[2019-10-11] MEDS: PROTONIX IV SCH (16:30)
--- NOTE | 2019-10-11 18:07 | PROGRESS NOTE ---
DATE: 10/11/2019 SUBJECTIVE: Ms. Hernandez underwent her EGD, and she did have her PEG tube placed. She is resting at the present time, but seemed to tolerate the procedure well. She remains afebrile, temperature 97.9 degrees, pulse 80, respirations 13, and blood pressure 167/98. OBJECTIVE: Pupils are equal and round. Lungs are clear in all lung rose. Cardiovascular exam regular rhythm and rate without murmur or S3. Abdomen is soft. Skin is warm and dry. Urine output 2900 mL. ASSESSMENT AND PLAN: 1. Stage IV non-small cell lung cancer. She is due for her next cycle of Avastin on 10/14/2019. Continue to follow with Dr. Ayoub. 2. Hypoglycemia. Blood sugar has been better. 3. Altered mental status. Recent CT scan. MRI showed no acute pathology. 4. Protein calorie malnutrition, and so has a PEG tube. We will begin nutrition, and she would like to try and go home tomorrow. 5. Continue proton pump inhibitor. 6. Will follow up with Dr. Ayoub and Dr. Gongora. cc: Gerry Lopez MD
[2019-10-11] MEDS: NORCO-10 PO PRN (19:19)
[2019-10-11] MEDS: BENADRYL PO SCH (20:57)
[2019-10-11] MEDS: ZOFRAN IV PRN (21:56)
[2019-10-12] MEDS: D5 NS 1,000 ML IV SCH ×3 (00:50→13:44)
[2019-10-12] MEDS: D50W SYRINGE IV PRN (01:46)
[2019-10-12 06:30] LABS: BASO# 0.03 X1000 (0.0-0.2); BASO% 0.5 % (0.0-0.8); EOS# 1.67 X1000 (0.0-0.7); EOS% 28.3 % (0.0-10.0); HEMATOCRIT 35.6 % (37.0-47.0); HEMOGLOBIN 11.9 g/dL (12.0-16.0); LYMPH# 1.07 X1000 (1.2-3.4); LYMPH% 18.1 % (20.5-51.1); MCH 30.5 PG (27-31); MCHC 33.4 g/dL (33-37); MCV 91.3 FL (81-99); MONO% 8.5 % (1.7-9.3); MPV 9.6 FL (7.4-10.4); NEUT# 2.64 X1000 (1.4-6.5); NEUT% 44.6 % (42.2-75.2); PLT 189 X1000 (130-400); RDW 14.1 % (11.5-14.5); WBC 5.91 X1000 (4.8-10.8)
[2019-10-12 06:39] LABS: AGAP 10; ALB/GLOB RATIO 1.3; ALBUMIN 2.6 g/dL (3.5-5.0); ALKALINE PHOSPHATASE 61 U/L (32-104); BUN 6 mg/dL (8-22); CALCIUM 7.9 mg/dL (8.8-10.2); CHLORIDE 89 mmol/L (98-107); COSMO 251; CREATININE 0.5 mg/dL (0.5-0.9); ESTIMATED GFR > 60; GLUCOSE 94 mg/dL (70-104); GOT 16 U/L (10-30); GPT 8 U/L (10-36); MAGNESIUM 1.3 mg/dL (1.5-2.7); POTASSIUM 3.2 mmol/L (3.5-5.1); SODIUM 126 mmol/L (136-145); TCO2 27 mmol/L (25-35); TOTAL BILIRUBIN 0.43 mg/dL (0.20-1.00); TOTAL PROTEIN 4.6 g/dL (6.3-8.3)
[2019-10-12] MEDS: CHLORASEPTIC SPRAY MT PRN (07:10)
[2019-10-12] MEDS: NORCO-10 PO PRN (07:16)
[2019-10-12 07:17] LABS: EOS 27 % (1-10); LYMPHS 16 % (21-51); MONO 8 % (1-9); SEGS 49 % (42-75)
[2019-10-12] MEDS: ZOFRAN IV PRN (08:51)
[2019-10-12] MEDS: KLOR-CON PO SCH (09:50)
[2019-10-12] MEDS: SYNTHROID PO SCH (09:50)
[2019-10-12] MEDS: ASPIRIN PO SCH (09:50)
[2019-10-12] MEDS: MAG-OX PO SCH (09:50)
[2019-10-12] MEDS: MS CONTIN PO SCH ×3 (09:50→22:35)
[2019-10-12] MEDS: RITALIN PO SCH ×2 (09:50→11:43)
[2019-10-12] MEDS: CULTURELLE PO SCH (09:50)
[2019-10-12] MEDS: DYAZIDE PO SCH (09:51)
[2019-10-12] MEDS: TORADOL IV PRN (12:29)
[2019-10-12] MEDS: REGLAN IV SCH ×2 (13:43→21:31)
[2019-10-12] MEDS: COMPAZINE IV PRN (15:52)
--- NOTE | 2019-10-12 18:06 | PROGRESS NOTE ---
DATE: 10/12/2019 SUBJECTIVE: Patient has no major complaints and some nausea and a little bit of emesis. They cut back on her tube feeds. OBJECTIVE: vital signs: Blood pressure is 150/83, heart rate of 81, respiratory rate of 12, temperature 97.9 degrees 99% on room air. Cardiovascular: Regular rate and rhythm. Pulmonary: Bilateral breath sounds. Clear to auscultation. Gastrointestinal: Soft, nontender, nondistended. Bowel sounds are positive. LABORATORY DATA: White count is 5.9, hemoglobin and hematocrit of 11 and 35, platelets 189,000. Sodium is down to 126, potassium of 3.2. PROBLEM LIST: 1. Stage IV non-small cell lung cancer. She is getting chemotherapy. She is due for Avastin on the per Dr. Ayoub. 2. Severe protein-calorie malnutrition. She has gotten a PEG tube for hyperalimentation, so we are getting that situated. 3. Altered mentation. She seems better. 4. Hypoglycemia. That is also improved. In any case patient is stable. I think she is stable to go to the floor soon. When she is tolerating her tube feeds, I think she could probably go home but we will see. We will check phosphorus for refeeding syndrome purposes. cc: Darrell Christiansen MD [facility]
--- NOTE | 2019-10-12 21:27 | GASTROENTEROLOGY PROGRESS NOTE ---
DATE: 10/12/2019 SUBJECTIVE: The patient is awake and alert. She has family at the bedside. She states she is tolerating her feeding but did have one episode of vomiting this morning. OBJECTIVE: Temperature 97.9 degrees, pulse 81, respirations 12, blood pressure 150/83. Abdomen with PEG tube in place. DIAGNOSTIC DATA: She had EGD and PEG tube placed on 10/11/2019. EGD findings showed normal esophagus, normal stomach, normal duodenum. Percutaneous endoscopic tube was placed without difficulty. LABORATORY DATA: Hematology: WBC 5.91, hemoglobin 11.9, hematocrit 35.6, MCV 91.3. Chemistry: Sodium 126, potassium 3.2, chloride 89, CO2 is 27, BUN 6, creatinine 0.5, glucose 94, calcium 7.9, magnesium 1.3, total bilirubin 0.43, AST 16, ALT 8, alkaline phosphatase 61. ASSESSMENT AND PLAN: 1. Stage IV non-small cell lung cancer. Following with Dr. Ayoub. 2. Hypoglycemia. 3. Protein-calorie malnutrition. Esophagogastroduodenoscopy and percutaneous endoscopic gastrostomy tube was placed yesterday. Today I have loosened the bumper and cleaned the site with Betadine. Site looked clean and intact. Continue feedings per dietitian recommendation. We will continue to follow. Further plans to be made according to her progress. I have discussed this case with Dr. Gongora. Dictated by ZULEMA Rivera for Bob Gongora MD cc: ZULEMA Gill MD
[2019-10-12] MEDS: PROTONIX IV SCH (21:30)
[2019-10-12] MEDS: BENADRYL PO SCH (21:38)
[2019-10-13] MEDS: REGLAN IV SCH ×3 (04:53→16:23)
[2019-10-13] MEDS: ZOFRAN IV PRN ×2 (06:37→16:32)
[2019-10-13] MEDS: D5 NS 1,000 ML IV SCH ×2 (06:40→14:13)
[2019-10-13 07:04] LABS: BASO# 0.02 X1000 (0.0-0.2); BASO% 0.2 % (0.0-0.8); EOS# 2.01 X1000 (0.0-0.7); EOS% 23.6 % (0.0-10.0); HEMATOCRIT 35.9 % (37.0-47.0); HEMOGLOBIN 11.9 g/dL (12.0-16.0); LYMPH# 1.08 X1000 (1.2-3.4); LYMPH% 12.7 % (20.5-51.1); MCH 30.4 PG (27-31); MCHC 33.1 g/dL (33-37); MCV 91.6 FL (81-99); MONO# 0.48 X1000 (0.11-0.59); MONO% 5.6 % (1.7-9.3); MPV 10.2 FL (7.4-10.4); NEUT# 4.94 X1000 (1.4-6.5); NEUT% 57.9 % (42.2-75.2); PLT 190 X1000 (130-400); RBC 3.92 XMIL (4.2-5.4); RDW 14.5 % (11.5-14.5); WBC 8.53 X1000 (4.8-10.8)
[2019-10-13 07:23] LABS: AGAP 12; ALB/GLOB RATIO 1.9; ALBUMIN 2.8 g/dL (3.5-5.0); ALKALINE PHOSPHATASE 70 U/L (32-104); BUN 13 mg/dL (8-22); CALCIUM 7.6 mg/dL (8.8-10.2); CHLORIDE 89 mmol/L (98-107); COSMO 253; CREATININE 0.9 mg/dL (0.5-0.9); ESTIMATED GFR > 60; GLUCOSE 93 mg/dL (70-104); GOT 19 U/L (10-30); GPT 7 U/L (10-36); MAGNESIUM 1.4 mg/dL (1.5-2.7); POTASSIUM 4.1 mmol/L (3.5-5.1); SODIUM 126 mmol/L (136-145); TCO2 25 mmol/L (25-35); TOTAL BILIRUBIN 0.44 mg/dL (0.20-1.00); TOTAL PROTEIN 4.3 g/dL (6.3-8.3)
[2019-10-13 07:42] LABS: BANDS 8 % (0-1); EOS 18 % (1-10); LYMPHS 16 % (21-51); SEGS 58 % (42-75)
[2019-10-13] MEDS: KLOR-CON PO SCH (08:45)
[2019-10-13] MEDS: CULTURELLE PO SCH (08:45)
[2019-10-13] MEDS: MS CONTIN PO SCH ×2 (08:45→22:03)
[2019-10-13] MEDS: DYAZIDE PO SCH (08:45)
[2019-10-13] MEDS: RITALIN PO SCH ×2 (08:45→12:24)
[2019-10-13] MEDS: SYNTHROID PO SCH (08:45)
[2019-10-13] MEDS: ASPIRIN PO SCH (08:46)
[2019-10-13] MEDS: MAG-OX PO SCH (08:46)
[2019-10-13] MEDS: NORCO-10 PO PRN ×2 (10:01→16:22)
[2019-10-13] MEDS ORDERED: NS 1,000 ML IV ONE (10:35)
[2019-10-13] MEDS: MAALOX PLUS LIQUID PO PRN (13:24)
--- NOTE | 2019-10-13 14:19 | PROGRESS NOTE ---
DATE: 10/13/2019 SUBJECTIVE: Patient has no major complaints. OBJECTIVE: Vital Signs: Blood pressure is 142/78, heart rate of 93, respiratory rate of 12, temperature 97.6 degrees, satting 99% on room air. Cardiovascular: Regular rate and rhythm. Pulmonary: Bilateral breath sounds. Clear to auscultation. GI: Soft and nontender. Her site looks good. LABORATORY DATA: Sodium is 126. Sugars down to her 60s. White count 8, hemoglobin and hematocrit 11 and 35, platelets of 190. PROBLEM LIST: 1. Severe protein-calorie malnutrition. We will continue intravenous fluids. In any case, the patient stabilized. We will continue to follow. 2. Stage IV non-small cell lung cancer. She was placed on chemotherapy. She is still getting chemotherapy. 3. Severe protein-calorie malnutrition. I have gone ahead and held her Ritalin, again at the discretion of Dr. Ayoub, just because I think it may be adversely affecting her appetite. I know he has been using it I guess as she has been lethargic; may want to consider another agent, possibly Provigil. 4. Altered mentation. Overall, seems improved. 5. Hypoglycemia. It persists. We are looking at her labs. 6. Hyponatremia. We will also look at that. I think she is probably close to getting home. She really wants to go home, and we will continue to monitor closely. cc: Darrell Christiansen MD
[2019-10-13] MEDS: PROTONIX IV SCH (21:10)
[2019-10-13] MEDS: COMPAZINE IV PRN (21:12)
[2019-10-13] MEDS: SODIUM CHLORIDE 0.9% INJ SCH (21:14)
[2019-10-13] MEDS: BENADRYL PO SCH (22:03)
[2019-10-14] MEDS: REGLAN IV SCH ×4 (01:10→23:53)
[2019-10-14 02:02] LABS: UR CREAT RANDOM 67.5 mg/dL (11-20)
[2019-10-14] MEDS: D5 NS 1,000 ML IV SCH ×3 (04:26→17:40)
[2019-10-14 05:59] LABS: BASO# 0.02 X1000 (0.0-0.2); BASO% 0.3 % (0.0-0.8); EOS% 31.8 % (0.0-10.0); HEMATOCRIT 32.9 % (37.0-47.0); HEMOGLOBIN 10.7 g/dL (12.0-16.0); LYMPH# 0.91 X1000 (1.2-3.4); LYMPH% 14.5 % (20.5-51.1); MCHC 32.5 g/dL (33-37); MCV 92.2 FL (81-99); MONO# 0.51 X1000 (0.11-0.59); MONO% 8.1 % (1.7-9.3); MPV 9.7 FL (7.4-10.4); NEUT# 2.84 X1000 (1.4-6.5); NEUT% 45.3 % (42.2-75.2); PLT 175 X1000 (130-400); RBC 3.57 XMIL (4.2-5.4); RDW 14.3 % (11.5-14.5); WBC 6.28 X1000 (4.8-10.8)
[2019-10-14 06:08] LABS: AGAP 9; BUN 14 mg/dL (8-22); CALCIUM 7.8 mg/dL (8.8-10.2); CHLORIDE 93 mmol/L (98-107); COSMO 259; CREATININE 0.8 mg/dL (0.5-0.9); ESTIMATED GFR > 60; GLUCOSE 92 mg/dL (70-104); MAGNESIUM 1.6 mg/dL (1.5-2.7); PHOSPHORUS 3.5 mg/dL (2.7-4.5); POTASSIUM 3.8 mmol/L (3.5-5.1); SODIUM 129 mmol/L (136-145); TCO2 27 mmol/L (25-35)
[2019-10-14 07:19] LABS: BASO 1 % (0-1); EOS 32 % (1-10); LYMPHS 9 % (21-51); MONO 3 % (1-9); SEGS 55 % (42-75)
[2019-10-14 07:28] LABS: PREALBUMIN < 3.0 mg/dL (20-40)
[2019-10-14] MEDS: CULTURELLE PO SCH (08:05)
[2019-10-14] MEDS: ASPIRIN PO SCH (08:05)
[2019-10-14] MEDS: SYNTHROID PO SCH (08:06)
[2019-10-14] MEDS: KLOR-CON PO SCH (08:06)
[2019-10-14] MEDS: MAG-OX PO SCH (08:06)
[2019-10-14] MEDS: MS CONTIN PO SCH ×2 (08:09→20:53)
[2019-10-14] MEDS: COMPAZINE IV PRN (08:20)
[2019-10-14] MEDS: SODIUM CHLORIDE 0.9% INJ SCH ×2 (08:21→20:54)
[2019-10-14] MEDS: NORCO-10 PO PRN ×3 (10:58→23:53)
--- NOTE | 2019-10-14 13:08 | PROGRESS NOTE ---
DATE: 10/14/2019 SUBJECTIVE: The patient reports no major complaints. , who is at the bedside, reports that she continues to have nausea and vomiting. Medications for nausea are not helping her. OBJECTIVE: Vital Signs: Temperature 98.4 degrees, heart rate 90, respiratory rate 12, blood pressure 151/74, O2 saturation 96% on room air. General Examination: This is a chronically ill- appearing and very malnourished, 59-year-old, female, sitting in the chair, in no acute distress. Cardiovascular Examination: S1 and S2 heard. No murmurs, gallops, or rubs. Regular rate and rhythm. Respiratory Examination: Clear bilaterally to auscultation. No work of breathing. She is not using accessory muscles. Abdomen: Soft, nontender to palpation. Bowel sounds present. No organomegaly. Extremities: No clubbing, cyanosis, or edema. Peripheral pulses present in both legs. Neurological Examination: The patient is sleepy but answered to verbal stimuli. Moves 4 extremities spontaneously. Laboratory Data: White cell count is 6.28, hemoglobin 10.7, hematocrit 32.9, platelet count 175,000. Sodium 129. Normal renal function. ASSESSMENT AND PLAN: 1. Severe protein calorie malnutrition. The patient is on percutaneous endoscopic gastrostomy tube feedings but is still vomiting a lot. The patient is on Compazine, Reglan, and Zofran, which we will continue. Continue to monitor. 2. Stage IV non-small cell lung cancer. The patient is being followed by oncology. 3. Altered mental status. That condition I think is getting better. We will continue with the same management. 4. Hypoglycemia. The patient is on D5 normal saline. We will continue with the same management. 5. Hyponatremia most likely related to non-small cell lung cancer. We will continue to monitor. cc: Orville Sandy MD
--- NOTE | 2019-10-14 20:09 | GASTROENTEROLOGY PROGRESS NOTE ---
DATE: 10/14/2019 SUBJECTIVE: The patient was sitting up in a chair. She has tolerated her tube feedings with only a small amount of residual. She is eating some solid foods, but she has had episodes of nausea and vomiting. It looks like her current feeding rate is 30 mL an hour. OBJECTIVE: Vital signs: Temperature 98.4 degrees, pulse 92, respirations 14, blood pressure 143/83. General: The patient is awake, alert, in no acute distress. Her is at the bedside. Abdomen: PEG tube site with a small amount of drainage noted. Otherwise no erythema or abnormalities noted. The abdomen is soft. She reports some mild tenderness around the site. LABORATORY: Hematology: WBC 6.28, hemoglobin 10.7, hematocrit 32.9, MCV 92.2. Platelets 175,000. Chemistry: Sodium 129, potassium 3.8, chloride 93, CO2 27, BUN 14, creatinine 0.8, glucose 92, calcium 7.8, phosphorus 3.5. ASSESSMENT AND PLAN: 1. Severe calorie malnutrition. Percutaneous gastrostomy tube (PEG) tube has been placed. She is tolerating her tube feedings but she is still having some episodes of vomiting. I have recommended she take oral food slowly, eat smaller amounts more frequently and do not overload the stomach. 2. Stage IV non-small cell lung cancer. Following with Dr. Ayoub. 3. Hyponatremia. 4. Hypoglycemia. Continue to follow. PLAN: The patient seems to be tolerating her tube feeding okay and we will continue to follow because she is having some episodes of nausea and vomiting. Further plans to be made according to her progress. I have discussed this case with Dr. Gongora. Dictated by ZULEMA Rivera for Bob Gongora MD cc: ZULEMA Gill MD
[2019-10-14] MEDS: PROTONIX IV SCH (20:53)
[2019-10-14] MEDS: BENADRYL PO SCH (20:54)
[2019-10-15] MEDS: REGLAN IV SCH ×4 (01:07→20:30)
[2019-10-15] MEDS: ZOFRAN IV PRN (08:08)
[2019-10-15] MEDS ORDERED: RELISTOR SUBQ ONE (08:25)
[2019-10-15] MEDS ORDERED: ZOFRAN IV PRN (08:26)
[2019-10-15] MEDS ORDERED: LABETALOL IV PRN (08:27)
[2019-10-15] MEDS: DILAUDID IV PRN ×3 (08:36→20:30)
[2019-10-15] MEDS: D5 NS 1,000 ML IV SCH ×3 (09:39→22:11)
[2019-10-15] MEDS: NORVASC PO SCH ×2 (09:39→20:39)
[2019-10-15] MEDS: PRINIVIL PO SCH (09:39)
[2019-10-15 10:12] LABS: ESTIMATED GFR > 60
[2019-10-15 10:14] LABS: AGAP 10; ALB/GLOB RATIO 1.6; ALBUMIN 2.8 g/dL (3.5-5.0); ALKALINE PHOSPHATASE 84 U/L (32-104); BUN 8 mg/dL (8-22); CALCIUM 8.2 mg/dL (8.8-10.2); CHLORIDE 89 mmol/L (98-107); COSMO 253; CREATININE 0.6 mg/dL (0.5-0.9); GLUCOSE 85 mg/dL (70-104); GOT 17 U/L (10-30); GPT 8 U/L (10-36); POTASSIUM 3.3 mmol/L (3.5-5.1); SODIUM 127 mmol/L (136-145); TCO2 28 mmol/L (25-35); TOTAL BILIRUBIN 0.37 mg/dL (0.20-1.00); TOTAL PROTEIN 4.5 g/dL (6.3-8.3)
[2019-10-15] MEDS: MS CONTIN PO SCH ×2 (11:02→20:39)
[2019-10-15] MEDS ORDERED: SAMSCA PO ONE (11:15)
[2019-10-15] MEDS: ASPIRIN PO SCH (11:23)
[2019-10-15] MEDS: CULTURELLE PO SCH (11:23)
[2019-10-15] MEDS: KLOR-CON PO SCH (11:23)
[2019-10-15] MEDS: MAG-OX PO SCH (11:23)
[2019-10-15] MEDS: SYNTHROID PO SCH (11:24)
[2019-10-15] MEDS: COMPAZINE IV PRN (11:34)
[2019-10-15] MEDS: TORADOL IV PRN (14:47)
[2019-10-15] MEDS: BENADRYL PO SCH (20:30)
[2019-10-15] MEDS: SODIUM CHLORIDE 0.9% INJ SCH (20:30)
[2019-10-15] MEDS: PROTONIX IV SCH (20:30)
--- NOTE | 2019-10-15 20:45 | PROGRESS NOTE ---
DATE: 10/15/2019 SUBJECTIVE: The patient is very sleepy. As per , she reports that her pain is somehow better controlled. She is still having intermittent nausea. OBJECTIVE: Vital Signs: Temperature 97.9 degrees, heart rate 94, respiratory rate 19, blood pressure 165/82, O2 saturation 96% on room air. General Examination: This is a chronically ill- appearing, malnourished 59-year-old female, sitting in the chair in no acute distress. Cardiovascular: S1, S2 heard. No murmurs, gallops, or rubs. Regular rate and rhythm. Respiratory Exam: Clear bilaterally to auscultation. No work of breathing or using accessory muscles. Abdomen: Soft, nontender to palpation. PEG tube in place. No organomegaly. Extremities: No clubbing, cyanosis, or edema. Peripheral pulses present in both legs. Neurological Exam: Patient is sleepy. Answers barely to verbal stimuli. Moves 4 extremities spontaneously. LABORATORY DATA: Reviewed. ASSESSMENT AND PLAN: 1. Severe protein calorie malnutrition. Patient is on PEG tube feedings. Still vomiting but less in comparing with previous days. GI is following with this patient. We will continue with current medications for nausea, namely Compazine, Reglan and Zofran. We will continue to monitor. 2. Stage IV non-small cell lung cancer. Patient is being followed by Oncology. Actually, the cancer is in remission. We appreciate oncology input. 3. Altered mental status. That condition is basically the same today. We will continue with the same management. 4. Chronic pain secondary to his lung cancer. We will continue with current medications. 5. Hypoglycemia. Patient continues to be on D5 normal saline. We will check cortisol level tomorrow, and we will go from there. 6. Hyponatremia. Patient had a sodium of 127. We will provide 1 dose of Samsca. We will check BMP tomorrow. cc: Orville Sandy MD
[2019-10-16] MEDS: REGLAN IV SCH ×4 (01:23→20:58)
[2019-10-16] MEDS: DILAUDID IV PRN ×4 (01:58→19:21)
[2019-10-16] MEDS: TORADOL IV PRN (02:54)
[2019-10-16] MEDS: COMPAZINE IV PRN (02:55)
--- NOTE | 2019-10-16 05:28 | GASTROENTEROLOGY PROGRESS NOTE ---
DATE: 10/15/2019 SUBJECTIVE: The patient was awake and alert. Her was at the bedside. She is still having some problems with nausea and vomiting and not able to eat much. So far, it seems that she is tolerating her tube feedings. Dietitian is following and I believe the type of feeding has been changed to see if she would tolerate that any better. She is complaining of some abdominal pain at the PEG tube site. OBJECTIVE: Vital Signs: Temperature 97.5 degrees, pulse 93, respirations 21, and blood pressure 185/95. Generally: Patient is awake, alert, in no acute distress. Abdomen: PEG site with some dried blood noted under the bumper. I have cleaned the site with Betadine. No signs of infection. Patient reports tenderness. Around the site, I have changed position of the tubing and taped at a different position so as not to irritate the skin in one spot. LABORATORY: Hematology: WBC 6.28, hemoglobin 10.7, hematocrit 32.9, MCV 92.2, platelet 175. Chemistry: Sodium 127, potassium 3.3, chloride 89, CO2 28. BUN 8, creatinine 0.6, glucose 85, calcium 8.2, total bilirubin 0.37. AST 17, ALT 8, alkaline phosphatase 84. ASSESSMENT AND PLAN: 1. Severe protein calorie malnutrition. Continue feedings per percutaneous endoscopic gastrostomy tube and patient can take in oral food as tolerated. 2. Nausea and vomiting. Continue as-needed medications. Symptomatic treatment. 3. Stage IV non small-cell lung cancer. Continue recommendations by Oncology. I have cleaned the PEG tube site and loosened the tape and changed position. She is having problems with constipation, which could be affecting her nausea and vomiting. Patient was given a Relistor shot; she has not had any results as of yet. Will give a 1 time dose of milk of magnesia 30 mL, and then start milk of magnesia 15 mL every other day. Will continue to follow. Further plans to be made according to her progress. I have discussed this case with Dr. Gongora. Dictated by ZULEMA Rivera for Bob Gongora MD cc: ZULEMA Gill MD
[2019-10-16 08:33] LABS: AGAP 12; ALBUMIN 2.5 g/dL (3.5-5.0); BUN 7 mg/dL (8-22); CALCIUM 8.7 mg/dL (8.8-10.2); CHLORIDE 98 mmol/L (98-107); COSMO 271; CREATININE 0.7 mg/dL (0.5-0.9); ESTIMATED GFR > 60; GLUCOSE 90 mg/dL (70-104); PHOSPHORUS 4.1 mg/dL (2.7-4.5); POTASSIUM 3.1 mmol/L (3.5-5.1); SODIUM 137 mmol/L (136-145); TCO2 27 mmol/L (25-35)
[2019-10-16] MEDS: CULTURELLE PO SCH (10:35)
[2019-10-16] MEDS: ASPIRIN PO SCH (10:36)
[2019-10-16] MEDS: KLOR-CON PO SCH (10:36)
[2019-10-16] MEDS: SYNTHROID PO SCH (10:36)
[2019-10-16] MEDS: MAG-OX PO SCH (10:36)
[2019-10-16] MEDS: MS CONTIN PO SCH ×2 (10:37→21:02)
[2019-10-16] MEDS: PRINIVIL PO SCH (10:38)
[2019-10-16] MEDS: NORVASC PO SCH ×2 (10:38→20:58)
[2019-10-16] MEDS: D5 NS 1,000 ML IV SCH (11:05)
[2019-10-16] MEDS ORDERED: KLOR-CON PO ONE (11:13)
[2019-10-16] MEDS: SODIUM CHLORIDE 0.9% INJ SCH (20:58)
[2019-10-16] MEDS: PROTONIX IV SCH (20:58)
[2019-10-16] MEDS: BENADRYL PO SCH (20:58)
--- NOTE | 2019-10-16 21:41 | PROGRESS NOTE ---
DATE: 10/16/2019 SUBJECTIVE: Patient is definitely more alert and awake. I have seen this patient walking in the [place]imentel with physical therapy. She reports eating better with less abdominal pain. OBJECTIVE: Vital Signs: Temperature 97.9 degrees, heart rate 111, respiratory rate 20, blood pressure 119/83, O2 saturation 97% on room air. General Examination: This is a chronically ill appearing, malnourished 59-year-old female, sitting in the chair in no acute distress. Cardiovascular: S1, S2 heard. No murmurs, gallops, or rubs. Regular rate and rhythm. Respiratory: Clear bilaterally to auscultation. No work of breathing or using accessory muscles. Abdomen: Soft. Nontender to palpation. PEG tube in place. No organomegaly. Extremities: No clubbing, cyanosis, or edema. Peripheral pulses present in both legs. Neurological: Patient is alert, awake, moves 4 extremities. Walks in the hallways. LABORATORY DATA: Remarkable for potassium 3.1. ASSESSMENT AND PLAN: 1. Protein calorie malnutrition with hypoglycemia. The patient seems to be on PEG tube feedings. She is not having high residuals. She reports not vomiting as she was before. She is feeling a little bit better. At this point, what we are going to do is stop D5 normal saline. Check blood sugars every 4 hours and see if she is able to maintain blood sugars without requiring that D5 normal saline. We will continue with medication for nausea in this case, Compazine, Reglan, Zofran. 2. Stage IV non-small cell lung cancer. Aware. Patient is being followed by Oncology and continues to be in remission. Continue to monitor. 3. Altered mental status, resolved. 4. Chronic pain secondary to lung cancer. Pain is under control according to patient. Will continue to monitor. 5. Hypoglycemia. Patient's D5 normal saline will be stopped. 6. Hyponatremia, resolved after 1 dose of Samsca. 7. Disposition: We will continue to monitor this patient closely. cc: Orville Sandy MD
[2019-10-17] MEDS: REGLAN IV SCH ×4 (01:03→20:41)
[2019-10-17] MEDS: DILAUDID IV PRN ×2 (01:03→05:10)
--- NOTE | 2019-10-17 02:26 | GASTROENTEROLOGY PROGRESS NOTE ---
DATE: 10/16/2019 SUBJECTIVE: Patient is awake and alert. She is sitting up in the bed, her is at the bedside. She states she does feel a little better today. She is tolerating her tube feedings and she has been able to eat a little bit of oral food without having vomiting. OBJECTIVE: Vital Signs: Temperature 98.4, pulse 99, respirations 14, blood pressure 105/54. General: The patient is awake and alert. No acute distress. Abdomen: PEG tubes site with just a small amount of dried drainage around the tube; otherwise, no redness or erythema noted. Dressing was clean by me yesterday. LABORATORY: Hematology 10/14/2019: WBC 6.28, hemoglobin 10.7, hematocrit 32.9, MCV 92.2, platelet 175,000. Chemistries: Sodium 137, potassium 3.1, chloride 98, CO2 of 27, BUN 7, creatinine 0.7. Glucose 90. ASSESSMENT AND PLAN: 1. Severe protein calorie malnutrition. Patient is currently tolerating her feeding, she has had less vomiting. We will continue p.r.n. medications for nausea and vomiting as needed. 2. Stage IV nonsmall cell lung cancer. Following with Oncology. 3. Hypoglycemia. Seems to have improved. We will continue to follow. She is tolerating her tube feedings. Further plans to be made as needed. I have discussed this case with Dr. Gongora. Dictated by ZULEMA Rivera for Bob Gongora MD cc: ZULEMA Gill MD
[2019-10-17] MEDS ORDERED: DILAUDID IV PRN (08:22)
[2019-10-17] MEDS ORDERED: NORCO-10 PO PRN (08:22)
[2019-10-17 08:40] LABS: AGAP 11; ALBUMIN 2.7 g/dL (3.5-5.0); BUN 10 mg/dL (8-22); CALCIUM 8.9 mg/dL (8.8-10.2); CHLORIDE 96 mmol/L (98-107); COSMO 267; CREATININE 0.7 mg/dL (0.5-0.9); ESTIMATED GFR > 60; GLUCOSE 90 mg/dL (70-104); POTASSIUM 4.2 mmol/L (3.5-5.1); SODIUM 134 mmol/L (136-145); TCO2 27 mmol/L (25-35)
[2019-10-17] MEDS: ASPIRIN PO SCH (09:59)
[2019-10-17] MEDS: SYNTHROID PO SCH (09:59)
[2019-10-17] MEDS: CULTURELLE PO SCH (09:59)
[2019-10-17] MEDS: PRINIVIL PO SCH (09:59)
[2019-10-17] MEDS: MAG-OX PO SCH (10:00)
[2019-10-17] MEDS: KLOR-CON PO SCH (10:00)
[2019-10-17] MEDS: NORVASC PO SCH ×2 (10:01→20:39)
[2019-10-17] MEDS: MS CONTIN PO SCH ×2 (10:08→20:39)
[2019-10-17] MEDS ORDERED: MIRALAX PO ONE (11:39)
[2019-10-17] MEDS ORDERED: MILK OF MAGNESIA PO ONE (13:28)
--- NOTE | 2019-10-17 17:53 | PROGRESS NOTE ---
DATE: 10/17/2019 INTERVAL HISTORY: Patient doing well with tube feeds. No nausea or vomiting. Still no bowel movement but passing some flatus. No abdominal pain. No new complaints. No acute events overnight. REVIEW OF SYSTEMS: Twelve point review of systems negative except as per interval history. LABS: Sodium 134, potassium 4.2, bicarb 10, creatinine 0.7, albumin 2.7, phosphorus 4. VITAL SIGNS: Temperature maximum 98.7 degrees, pulse 88, respirations 14, blood pressure 144/94, O2 saturation 96% on room air. PHYSICAL EXAMINATION: General: No acute distress. Thin. Vitals: As above. HEENT: Normocephalic, atraumatic. Moist mucous membranes. Neck: No cervical adenopathy. Cardiovascular: Regular rate and rhythm. No murmurs noted. Pulmonary: Clear to auscultation bilaterally. No wheezing, rales, or rhonchi noted. Abdomen: Soft, nontender. PEG tube in place without any surrounding erythema, induration or other sign of infection. Extremities: Peripheral pulses intact. No clubbing or cyanosis. Approximately three tense blisters on the left foot where the toes meet the forefoot. Also, a couple on the right. Has some very slight erythema there around those blisters and of the toes on the left foot, but really nothing on the right surrounding those blisters. Neurologic: Cranial nerves grossly intact. No focal deficits identified. Psychiatric: Normal mood and affect. Awake, alert, oriented x3. Skin: No new appearing rashes or lesions noted. ASSESSMENT AND PLAN: 1. Hypoglycemia and malnutrition. Patient doing well with PEG tube feedings. Electrolyte abnormalities improved. Discussed with dietitian and they recommend continuing continuous tube feeds via pump even after discharge given difficulties with tolerating various tube feeds. This could not be arranged for home today. Hopefully will be able to be arranged tomorrow. Off of D5 and glucose, appears to be remaining stable so hopefully home tomorrow once home tube feeds are set up. 2. Stage IV small cell lung cancer. Patient following with Oncology. Reportedly in remission. Monitor. 3. Encephalopathy, resolved. 4. Chronic pain. Transitioned to her home oral regimen and seems to be doing well so far, but will leave low-frequency Dilaudid available in case she has breakthrough pain. 5. Hypoglycemia essentially resolved as above. 6. Hyponatremia. Did receive one dose of Samsca, but has been largely stable since then. Very slightly low today, but not significantly. 7. Hypokalemia improved with repletion. Monitor. 8. Hypomagnesemia, improved on last check. 9. Possible left foot cellulitis. Patient with some blistering along both feet between the toes and the forefoot. Minimal erythema around it on the left but really nothing on the right. The patient states she has had this before when she scratched the skin. As it is on both feet and only at all erythematous on the left, we will hold off on antibiotics for now, but monitor closely and may be non infectious, but given comorbidities and possible discharge in the near future we will go ahead and start some. We will go and start a short course of Bactrim and monitor.
[2019-10-17] MEDS: SEPTRA DS PO SCH (20:39)
[2019-10-17] MEDS: BENADRYL PO SCH (20:39)
[2019-10-17] MEDS: PROTONIX IV SCH (20:42)
[2019-10-17] MEDS: SODIUM CHLORIDE 0.9% INJ SCH (20:42)
[2019-10-18] MEDS: REGLAN IV SCH ×3 (01:52→13:50)
--- NOTE | 2019-10-18 04:38 | GASTROENTEROLOGY PROGRESS NOTE ---
DATE: 10/17/2019 Ms. Hernandez is resting comfortably. In fact, she was sitting up in the bed. She has not had any problems with her tube feeding. She is waiting to hear from the disease case manager. Apparently, she has been scheduled to go home with a feeding pump. So far, she is doing well with feeding tube. At this point, no new suggestions. I will sign off and will be available if needed. cc: Bob Gongora MD
[2019-10-18 07:45] LABS: AGAP 10; ALBUMIN 2.7 g/dL (3.5-5.0); BUN 15 mg/dL (8-22); CALCIUM 8.8 mg/dL (8.8-10.2); CHLORIDE 95 mmol/L (98-107); COSMO 265; CREATININE 0.7 mg/dL (0.5-0.9); ESTIMATED GFR > 60; GLUCOSE 88 mg/dL (70-104); PHOSPHORUS 4.3 mg/dL (2.7-4.5); POTASSIUM 4.3 mmol/L (3.5-5.1); SODIUM 132 mmol/L (136-145); TCO2 27 mmol/L (25-35)
[2019-10-18 07:48] VITALS: BP 139/68
[2019-10-18] MEDS: MS CONTIN PO SCH (08:45)
[2019-10-18] MEDS: SYNTHROID PO SCH (08:46)
[2019-10-18] MEDS: MAG-OX PO SCH (08:46)
[2019-10-18] MEDS: ASPIRIN PO SCH (08:46)
[2019-10-18] MEDS: PRINIVIL PO SCH (08:46)
[2019-10-18] MEDS: NORVASC PO SCH (08:46)
[2019-10-18] MEDS: CULTURELLE PO SCH (08:46)
[2019-10-18] MEDS: SEPTRA DS PO SCH (08:46)
--- NOTE | 2019-10-20 14:23 | DISCHARGE SUMMARY ---
ADMISSION DATE: 10/06/2019 DISCHARGE DATE: 10/18/2019 ADMISSION DIAGNOSES: 1. Stage IV non-small cell lung cancer. 2. Severe protein calorie malnutrition. 3. Altered mentation. 4. Hypoglycemia. DISCHARGE DIAGNOSES: 1. Hypoglycemia malnutrition. 2. Stage IV small-cell lung cancer. 3. Encephalopathy resolved. 4. Chronic pain. 5. Hypoglycemia, resolved. 6. Hyponatremia, on Samsca. 7. Hypokalemia, improved. 8. Hypoglycemia, improved. 9. Possible left foot cellulitis with blistering along both feet between the toes on the forefoot. CONSULTATIONS: 1. Palliative Care. 2. Dietitian. 3. Dr. Gongora with Gastroenterology. 4. Dr. Ayoub. 5. Social Service. 6. Home Health [facility]. 7. Dr. Gongora was consulted for PEG placement and Dr. Ayoub was consulted for lung cancer history. SURGERIES AND PROCEDURES: On 10/11/2019, Dr. Gongora performed EGD with percutaneous gastrostomy tube placement. HOSPITAL COURSE: Ms. Nafisa Hernandez is a 59-year-old female followed by Dr. Ayoub for lung cancer. 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 She was noted to have lung nodules, and received chemotherapy by Dr. Ayoub. Chemotherapy with Taxol and Avastin. Yesterday or the day before presentation, she was in a good state of health. The day of admission she was confused, disoriented and agitated. Poor appetite, nausea, low sodium, and found to be in severe protein calorie malnutrition with anorexia. Sodium was at 124. Head CT and brain MRI were negative so Hematology was consulted for history of lung cancer. Sodium was slowly improved. Blood glucose levels for the hypoglycemia had improved. Neurologically, she improved quite a bit. She still continued to have really poor p.o. intake and severe protein calorie malnutrition so Dr. Gongora was consulted. He put in a PEG tube on 10/11. She was initially started on antibiotics but those were stopped. The esophagus was normal. The stomach was normal. She just needed the PEG because she is having poor p.o. intake and dysphagia. Despite having a PEG tube placed, she started having vomiting and continued pretty significantly so she is on Compazine, Reglan, and Zofran. They kept her on D5 normal saline because of the hypoglycemia. We went ahead and continued with tube feeds and oral feeding as tolerated. On the , I went ahead and gave her a dose of Samsca because the continued hyponatremia stayed in the 120s at that time. The D5 saline was stopped. She is tolerating her tube feeds, and her encephalopathy resolved. Hyponatremia improved after the Samsca. There was some mention of possible left foot cellulitis, but no antibiotics were given. They did do a short course of Bactrim. DISCHARGE VITAL SIGNS: Temperature 97.7 degrees, respiratory rate 18, heart rate 89, blood pressure 139/68, and O2 saturation 94% on room air. DISCHARGE LABORATORY DATA: Back on the was her last CBC. Her white blood cell is 6000, hemoglobin 10, hematocrit 32, and platelet count 175,000. On yesterday on the was her BMP. Sodium was 132, potassium 4.3, BUN 15, creatinine 0.7, glucose 77, calcium 8.8, phosphorus 4.3, albumin 2.7, and pre-albumin back on the was less than 3. PERTINENT IMAGING: Chest x-ray on admission with stable chest. Head CT right maxillary sinusitis. Brain MRI with no acute disease. EKG accelerated junctional rhythm, rate 100. Repeat EKG on the with accelerated junction rhythm, and rate was 115. QTc was 636. DISCHARGE MEDICATIONS: 1. [place] 1 tab p.o. q.6 hours p.r.n. 2. Triamterene/hydrochlorothiazide 1 tablet p.o. daily. 3. Magnesium chloride 400 mg p.o. daily. 4. Morphine 200 mg p.o. twice daily. 5. Potassium chloride 20 mEq p.o. daily. 6. Ritalin 10 mg p.o. twice daily. 7. Benadryl 25 mg p.o. nightly. 8. Synthroid 100 mcg p.o. daily. 9. Albuterol p.r.n. 10. Aspirin 81 mg p.o. daily. 11. Lactobacillus once daily. 12. Norvasc 5 mg p.o. twice daily. 13. Phenergan 12.5 mg p.o. every 6 hours p.r.n. 14. Lisinopril 10 mg p.o. daily. 15. Bactrim 1 tablet p.o. twice daily. 16. Zofran 4 mg p.o. every 6 hours p.r.n. DISCHARGE DIET: PEG tube feeding and oral intake as tolerated. DISCHARGE ACTIVITY: As tolerated. DISCHARGE WOUND CARE INSTRUCTIONS: Clean around PEG tube site with water and soap, and dry thoroughly. DISCHARGE INSTRUCTIONS: If her condition changes, contact physician and/or return to the emergency department. Changes may include, but not limited to shortness of breath, increased fatigue, excessive bleeding, unexplained weight loss or gain, unmanageable pain, signs or symptoms of infection. Notify MD for cramps or excessive thirst or seizures. Keep all followup appointments. Take all prescribed medications as directed. Return to the emergency department for any new or worsening symptoms. Physician follow-up with Dr. Ayoub. DISCHARGE DISPOSITION: Home with home health. Dictated by ZULEMA Panda for Orville Sandy MD Addendum: Patient seen and examined by myself. Agree with ZULEMA note. It reflects my assessment and plan. Patient is being discharged in stable condition. Will be seen by Dr. Ayoub in a week. cc: ZULEMA Panda MD [facility]
== END 2019-10-18 15:42 | disposition home health service (06) | DRG 640 ==
LOC: SUPCPDRO → ED 11:37 → SUATTDRO 11:38 → EDIPHOLD 11:38 → 2N 21:39 → 3N 10-14 22:47
PROVIDERS: ATTEND Internal Medicine